=== PATIENT | female | born 1950 | race African-American/Black ===

== ENCOUNTER 2019-05-21 06:05 | Inpatient (IN) | payer MEDICARE, OTHER ==
[2019-05-21 06:51] LABS: #Eosinphils 0.3 thou/uL (0.0-0.7); #Lymphocytes 1.9 thou/uL (1.20-3.40); #Monocytes 0.6 thou/uL (0.11-0.59); %Basophils 0.5 % (0.0-1.0); %Eosinophils 4.9 % (0.0-10.0); %Lymphocytes 28.3 % (21.0-51.0); %Monocytes 8.7 % (0.0-10.0); %Neutrophils 57.6 % (42.0-75.0); Mean Corpuscular HGB CONC 31.8 g/dL (32.0-36.0); Mean Corpuscular Hemoglobin 24.6 pg (27.0-31.0); Mean Corpuscular Volume 77.4 fL (78.0-98.0); Mean Platelet Volume 8.6 fL (7.4-10.4); Platelet Count 266 thou/uL (130-400); RBC Distribution Width 14.7 % (11.5-14.5); Red Blood Cell (RBC) Count 4.08 mill/uL (4.20-5.40); White Blood Cell (WBC) Count 6.9 thou/uL (4.8-10.8)
[2019-05-21] MEDS ORDERED: CEFAZOLIN 1 GM VIAL ONE (06:52)
[2019-05-21] MEDS ORDERED: Levofloxacin 500 mg/D5W 100 ml Premix Bag ONE (07:00)
[2019-05-21] MEDS ORDERED: Clindamycin/D5W 900 mg/50 ml Premix Bag ONE (07:00)
[2019-05-21 07:09] LABS: Anion Gap 9 mmol/L (10-20); BUN (Urea Nitrogen) 16 mg/dL (9.8-20.1); Calc. Creatinine Clearance 68 mL/min (70-130); Calcium 9.1 mg/dL (7.8-10.44); Carbon Dioxide 27 mmol/L (23-31); Chloride 106 mmol/L (98-107); Estimated GFR-MDRD 57; Glucose 98 mg/dL (80-115); Potassium 4.3 mmol/L (3.5-5.1); Sodium 138 mmol/L (136-145)
[2019-05-21] MEDS ORDERED: Fentanyl 100 MCG/2 ML VIAL ONE ×3 (07:24→10:50)
[2019-05-21] MEDS ORDERED: Ketamine 50 MG/ML (10ML VIAL) ONE (07:59)
[2019-05-21] MEDS ORDERED: SUGAMMADEX SODIUM 500 MG/5 ML VIAL ONE (07:59)
[2019-05-21] MEDS ORDERED: Sodium Chloride 0.9% 10 ML ONE (08:05)
[2019-05-21] MEDS ORDERED: diphenhydrAMINE 50 MG/ML VIAL ONE (08:31)
[2019-05-21] MEDS ORDERED: Glycopyrrolate 0.2 MG/ML 5 ML SYRINGE ONE (08:31)
[2019-05-21] MEDS ORDERED: ePHEDrine/0.9% NaCl/PF SYRINGE 50 mg/10 ml ONE (08:31)
[2019-05-21] MEDS ORDERED: Dexamethasone 20 MG/5 ML VIAL ONE (08:31)
[2019-05-21] MEDS ORDERED: Ondansetron PF 4 MG/2 ML Vial ONE (08:31)
[2019-05-21] MEDS ORDERED: Rocuronium Bromide 10 MG/ML (10ML VIAL) ONE (08:31)
[2019-05-21] MEDS ORDERED: PROPOFOL 200 MG/20 ML VIAL ONE (08:31)
[2019-05-21] MEDS ORDERED: PHENYLEPHRINE-NS 100 MCG/ML 10 ML SYRINGE ONE (08:31)
[2019-05-21] MEDS ORDERED: Ondansetron HCl/PF 4 MG/2 ML Vial IVP PRN (10:10)
--- NOTE | 2019-05-21 11:20 | OP ---
DATE OF PROCEDURE: 05/21/2019 PIPE WASHER: Kalyani Colby PA-C PROCEDURES PERFORMED: L3 through L5 decompressive laminectomies. DESCRIPTION OF PROCEDURE: The patient was brought to the operating room and intubated. She was rolled in a prone position on gel-filled chest rolls. An incision was made exposing L3 through L5 and the level was confirmed by x-ray. We performed complete L5, complete L4, and inferior L3 laminectomies, completely decompressing the neural elements. The wound was extensively irrigated. MAC hemostasis was secured and the wound was closed in anatomic layers over drain after the application of vancomycin. Job ID: [id number]
[2019-05-21 13:03] VITALS: BMI 34.1
[2019-05-21] MEDS ORDERED: Ondansetron PF 4 MG/2 ML Vial IM PRN (13:11)
[2019-05-21] MEDS ORDERED: Promethazine HCl 25 MG/ML VIAL IM PRN (13:11)
[2019-05-21] MEDS ORDERED: Mag-Al 1200 mg/1200 mg/30 ML UDCUP PO PRN (13:11)
[2019-05-21] MEDS ORDERED: HYDROcodone/Acetaminophen 10/325 mg Tablet PO PRN ×2 (13:11)
[2019-05-21] MEDS ORDERED: Morphine 4 MG/ML VIAL SLOW IVP PRN (13:11)
[2019-05-21] MEDS ORDERED: Promethazine 25 MG TAB PO PRN (13:11)
[2019-05-21] MEDS ORDERED: diphenhydrAMINE 25 MG CAP PO PRN (13:11)
[2019-05-21] MEDS ORDERED: Milk Of Magnesia 30 ML UDCUP PO PRN (13:11)
[2019-05-21] MEDS ORDERED: diphenhydrAMINE 50 MG/ML VIAL IVP PRN (13:11)
[2019-05-21] MEDS ORDERED: traMADol HCl 50 MG TAB PO PRN (13:11)
[2019-05-21] MEDS ORDERED: tiZANidine HCl 4 MG TAB PO PRN (13:11)
[2019-05-21] MEDS ORDERED: Promethazine HCl 12.5 MG SUPP PR PRN (13:11)
[2019-05-21] MEDS ORDERED: Morphine 2 MG/ML SYRINGE SLOW IVP PRN (13:13)
[2019-05-21] MEDS ORDERED: Acetaminophen 325 MG TAB PO PRN (13:15)
[2019-05-21] MEDS ORDERED: PROVENTIL INHALER 6.7 G (200 INHALATIONS) INH PRN (13:16)
[2019-05-21] MEDS ORDERED: HYDROcodone/Acetaminophen 7.5/325 mg Tablet PO PRN (13:19)
[2019-05-21] MEDS ORDERED: Nitroglycerin 0.4 MG TAB (25 Tab Bottle) SL PRN (13:22)
[2019-05-21] MEDS: Sodium Chloride 0.9% 1,000 ML IV SCH (13:32)
[2019-05-21] MEDS: HumaLOG 300 UNITS/3 ML VIAL SC SCH ×2 (14:21→19:37)
[2019-05-21] MEDS: Gabapentin 300 MG CAP PO SCH ×2 (14:22→21:03)
[2019-05-21] MEDS: Clindamycin/D5W 900 MG in Premix Bag 1 BAG IVPB SCH (17:19)
[2019-05-21] MEDS ORDERED: Sodium Chloride 0.9% 500 ML IVPB SCH (19:00)
[2019-05-21] MEDS: Metoprolol Tartrate 25 MG TAB PO SCH (20:56)
[2019-05-21] MEDS ORDERED: Cyclobenzaprine 10 MG TAB PO SCH (21:00)
[2019-05-21] MEDS ORDERED: Insulin Glargine 40 UNITS in Pre-Filled Syringe 1 EACH SC SCH (21:00)
[2019-05-21] MEDS: Doxycycline 100 MG CAP PO SCH (21:03)
[2019-05-21] MEDS: Atorvastatin Calcium 40 MG TAB PO SCH (21:03)
[2019-05-21] MEDS: Venlafaxine HCl XR 75 MG CAP PO SCH (21:04)
[2019-05-21] MEDS: Clotrimazole 1 % Cream 30 GM TUBE TOP SCH (21:04)
[2019-05-22] MEDS: Clindamycin/D5W 900 MG in Premix Bag 1 BAG IVPB SCH ×3 (01:26→17:50)
[2019-05-22] MEDS: traMADol HCl 50 MG TAB PO PRN ×2 (01:26→08:04)
[2019-05-22] MEDS: Sodium Chloride 0.9% 1,000 ML IV SCH ×2 (01:51→17:50)
[2019-05-22] MEDS: Levothyroxine Sodium 25 MCG TAB PO SCH (05:16)
[2019-05-22] MEDS ORDERED: Sodium Chloride 0.9% 1,000 ML IV SCH ×2 (06:30→14:52)
--- NOTE | 2019-05-22 06:48 | PRG ---
DATE OF SERVICE: 05/22/2019 SUBJECTIVE: The patient is a 69-year-old female, who underwent L3 through L5 laminectomy. She is postoperative day #1. Following the surgery, she was transitioned to the [facility] surgery floor, where her pain has been well controlled with p.o. medications, and she is tolerating a regular diet. She did develop some urinary retention overnight and during a straining episode had a vasovagal event. Her EKG showed normal sinus rhythm. The patient did require straight cath x2 for urinary retention. Her PAULINE had 110 mL out overnight. OBJECTIVE: This morning on exam, the patient is awake, alert, and in no acute distress. She has free active range of motion of all extremities. No focal motor weakness. Her incision is clean, dry, and intact. There is a small amount of bright red blood in the PAULINE. PLAN: We will continue to monitor urine output closely. If she continues to have urinary retention, she will require placement of an indwelling Gil. We will continue to mobilize with the assistance of Physical Therapy. I will monitor the PAULINE output and depending on her progress, I anticipate home in the next few days. Job ID: [id number]
[2019-05-22] MEDS: HumaLOG 300 UNITS/3 ML VIAL SC SCH (07:57)
[2019-05-22] MEDS: Fluticasone Propionate Nasal Spray 16 gm Bottle NASAL SCH (08:02)
[2019-05-22] MEDS: Venlafaxine HCl XR 75 MG CAP PO SCH ×2 (08:03→20:35)
[2019-05-22] MEDS: Ferrous Sulfate 325 MG TAB PO SCH (08:03)
[2019-05-22] MEDS: Ascorbic Acid 500 mg Chewable Tablet PO SCH (08:03)
[2019-05-22] MEDS: Gabapentin 300 MG CAP PO SCH ×3 (08:03→20:35)
[2019-05-22] MEDS ORDERED: Losartan 25 MG TAB PO SCH (09:00)
[2019-05-22] MEDS: Metoprolol Tartrate 25 MG TAB PO SCH (09:43)
[2019-05-22] MEDS: Clotrimazole 1 % Cream 30 GM TUBE TOP SCH ×2 (09:43→20:35)
[2019-05-22] MEDS: Doxycycline 100 MG CAP PO SCH ×2 (11:39→20:34)
[2019-05-22] MEDS ORDERED: Sodium Chloride 0.9% 500 ML IV SCH ×2 (12:15→13:45)
[2019-05-22] MEDS: Acetaminophen 500 MG TAB PO SCH ×3 (12:18→23:18)
[2019-05-22] MEDS ORDERED: Dextrose 50% Abboject 50 ML SYRINGE SLOW IVP PRN (13:35)
[2019-05-22] MEDS ORDERED: Dextrose 5% in Water 1,000 ML IV PRN (13:35)
[2019-05-22] MEDS ORDERED: Insulin Regular 300 UNITS/3 ML VIAL SC PRN (13:36)
[2019-05-22 13:59] LABS: #Eosinphils 0.1 thou/uL (0.0-0.7); #Lymphocytes 1.4 thou/uL (1.20-3.40); #Monocytes 0.5 thou/uL (0.11-0.59); #Neutrophils 4.9 thou/uL (1.40-6.50); %Basophils 0.5 % (0.0-1.0); %Eosinophils 1.6 % (0.0-10.0); %Lymphocytes 19.4 % (21.0-51.0); %Monocytes 7.8 % (0.0-10.0); %Neutrophils 70.7 % (42.0-75.0); Hemoglobin 8.2 g/dL (12.0-16.0); Mean Corpuscular HGB CONC 30.5 g/dL (32.0-36.0); Mean Corpuscular Hemoglobin 24.3 pg (27.0-31.0); Mean Corpuscular Volume 79.7 fL (78.0-98.0); Mean Platelet Volume 8.1 fL (7.4-10.4); Platelet Count 217 thou/uL (130-400); RBC Distribution Width 14.5 % (11.5-14.5); Red Blood Cell (RBC) Count 3.37 mill/uL (4.20-5.40); White Blood Cell (WBC) Count 6.9 thou/uL (4.8-10.8)
[2019-05-22] MEDS ORDERED: FLU VACC TS2019-20(65YR UP)/PF 180 MCG/0.5 ML SYRINGE IM ONE (14:15)
[2019-05-22 14:23] LABS: ALT (SGPT) 7 U/L (8-55); AST (SGOT) 15 U/L (5-34); Albumin 3.4 g/dL (3.4-4.8); Alkaline Phosphatase 63 U/L (40-110); Anion Gap 9 mmol/L (10-20); BUN (Urea Nitrogen) 18 mg/dL (9.8-20.1); Bilirubin, Total 0.2 mg/dL (0.2-1.2); Calc. Creatinine Clearance 69 mL/min (70-130); Calcium 8.1 mg/dL (7.8-10.44); Carbon Dioxide 24 mmol/L (23-31); Chloride 107 mmol/L (98-107); Estimated GFR-MDRD 52; Globulin 2.6 g/dL (2.4-3.5); Glucose 75 mg/dL (80-115); Magnesium 1.9 mg/dL (1.6-2.6); Potassium 4.2 mmol/L (3.5-5.1); Sodium 136 mmol/L (136-145)
[2019-05-22] MEDS ORDERED: Cosyntropin 250 MCG VIAL SLOW IVP SCH (15:00)
[2019-05-22 17:32] LABS: Troponin I Less than 0.010 ng/mL (< 0.028)
[2019-05-22] MEDS: Atorvastatin Calcium 40 MG TAB PO SCH (20:34)
[2019-05-22] MEDS ORDERED: predniSONE 5 MG TAB PO SCH (22:45)
--- NOTE | 2019-05-23 00:10 | PDOC.HOSPP ---
- Subjective Encounter Date: 05/23/19 Encounter Time: 14:30 Subjective: Patient seen and examined for med mngt. Had syncopal episode yesterday. Low BP with hypoglycemia per RN. No focal deficits. No CP/SOB. No overnight events - Objective Vital Signs & Weight: Vital Signs (12 hours) Temp Pulse Resp BP BP Pulse Ox 05/22/19 23:06 98.2 F 67 16 125/81 98 05/22/19 19:10 97.8 F 68 16 115/73 99 05/22/19 16:00 75 121/67 05/22/19 15:19 97.6 F 67 20 102/66 97 05/22/19 15:04 90/60 05/22/19 13:30 70 87/58 L 05/22/19 13:25 80/50 L Weight Weight 218 lb I&O: 05/21/19 05/22/19 05/23/19 06:59 06:59 06:59 Intake Total 1999 3250 Output Total 1515 1180 Balance 485 2070 Result Diagrams: 05/22/19 13:54 05/22/19 13:54 Additional Labs: Accuchecks 05/22/19 05/22/19 05/22/19 20:53 15:52 11:37 POC Glucose 120 H 127 H 77 05/22/19 05/22/19 05/22/19 10:57 08:00 05:23 POC Glucose 57 L* 109 119 H Laboratory Tests 05/22/19 05/22/19 05/22/19 10:57 13:54 13:54 BUN 18 Creatinine 1.24 H POC Glucose 57 L* Troponin I Cortisol 1.00 Cortisol Response 05/22/19 05/22/19 13:54 16:55 BUN Creatinine POC Glucose Troponin I Less than 0.010 Cortisol Cortisol Response EKG Reviewed by me: Yes (SR, Prolonged QT) Hospitalist ROS - Review of Systems Respiratory: denies: cough, dry, shortness of breath, hemoptysis, SOB with excertion, pleuritic pain, sputum, wheezing, other Cardiovascular: denies: chest pain, palpitations, orthopnea, paroxysmal noc. dyspnea, edema, light headedness, other Gastrointestinal: denies: nausea, vomiting, abdominal pain, diarrhea, constipation, melena, hematochezia, other - Medication Medications: Active Medications Generic Name Dose Route Start Last Admin Trade Name Freq PRN Reason Stop Dose Admin Acetaminophen 1,000 mg 05/22/19 12:00 05/22/19 23:18 Tylenol PO 1,000 mg Q6HR BREANNA Administration Ascorbic Acid 1,000 mg 05/22/19 09:00 05/22/19 08:03 Vitamin C PO 1,000 mg DAILY BREANNA Administration Atorvastatin Calcium 80 mg 05/21/19 21:00 05/22/19 20:34 Lipitor PO 80 mg HS BREANNA Administration Clotrimazole 0 gm 05/21/19 21:00 05/22/19 20:35 Lotrimin 1% Cream TOP Not Given BID BREANNA Cosyntropin 250 mcg 05/22/19 15:00 05/22/19 16:20 Cortrosyn SLOW IVP 250 mcg WILLCALL BREANNA Administration Doxycycline Hyclate 100 mg 05/21/19 21:00 05/22/19 20:34 Vibramycin PO 100 mg BID BREANNA Administration Ferrous Sulfate 325 mg 05/22/19 08:00 05/22/19 08:03 Feosol PO 325 mg QAM-WM BREANNA Administration Fluticasone Propionate 0 gm 05/22/19 09:00 05/22/19 08:02 Flonase Nasal [place] NASAL 2 spr DAILY BREANNA Administration Gabapentin 300 mg 05/21/19 15:00 05/22/19 20:35 Neurontin PO 300 mg TID BREANNA Administration Clindamycin Phosphate/Dextrose 50 mls @ 100 mls/hr 05/21/19 18:00 05/22/19 17 :50 900 mg/ Device IVPB 50 mls 0200,1000,1800 BREANNA Administration Sodium Chloride 1,000 mls @ 75 mls/hr 05/22/19 17:04 05/22/19 17:50 Normal Saline 0.9% IV 1,000 mls .[id number] BREANNA Administration Levothyroxine Sodium 25 mcg 05/22/19 06:00 05/22/19 05:16 Synthroid PO 25 mcg 0600 BREANNA Administration Metoprolol Tartrate 25 mg 05/21/19 21:00 05/22/19 09:43 Lopressor PO Not Given BID BREANNA Pantoprazole Sodium 40 mg 05/22/19 09:00 05/22/19 08:03 Protonix PO 40 mg DAILY BREANNA Administration Prednisone 5 mg 05/22/19 22:45 05/22/19 23:18 Prednisone PO 05/23/19 01:00 5 mg NOW BREANNA Administration Venlafaxine HCl 150 mg 05/21/19 21:00 05/22/19 20:35 Effexor Xr PO 150 mg BID BREANNA Administration - Exam General Appearance: NAD Neck: supple, no JVD Heart: RRR, no gallops, no rubs, normal peripheral pulses Respiratory: no wheezes, no rales, no ronchi, normal chest expansion Gastrointestinal: non-tender, non-distended, normal bowel sounds, no palpable masses Extremities: no cyanosis, no clubbing Neurological: normal sensation to touch, no weakness, no focal deficits Psychiatric: normal affect, A&O x 3 Hosp A/P - Plan DVT proph w/SCDs Probable Relative adrenal insuff DM2 with hypglycemia h/o HTN with hypotension Par Afib s/p Watchman CAD Hypothyroidism Prolonged QT GERD HLD CKD 3 Obesity BMI 34.1 PLAN: Cortisol level low s/p Cosyntropin test with suboptimal response Will start Steroids Repeat EKG in AM CXR in AM Orthostatic vitals in AM Cont other meds
[2019-05-23] MEDS: Clindamycin/D5W 900 MG in Premix Bag 1 BAG IVPB SCH ×3 (01:07→17:26)
[2019-05-23] MEDS: Sodium Chloride 0.9% 1,000 ML IV SCH (01:07)
[2019-05-23 05:35] LABS: #Eosinphils 0.3 thou/uL (0.0-0.7); #Lymphocytes 1.3 thou/uL (1.20-3.40); #Monocytes 0.5 thou/uL (0.11-0.59); #Neutrophils 3.9 thou/uL (1.40-6.50); %Basophils 0.7 % (0.0-1.0); %Lymphocytes 20.9 % (21.0-51.0); %Monocytes 8.2 % (0.0-10.0); %Neutrophils 65.2 % (42.0-75.0); Hemoglobin 8.3 g/dL (12.0-16.0); Mean Corpuscular HGB CONC 31.8 g/dL (32.0-36.0); Mean Corpuscular Volume 78.6 fL (78.0-98.0); Platelet Count 237 thou/uL (130-400); RBC Distribution Width 14.6 % (11.5-14.5); Red Blood Cell (RBC) Count 3.32 mill/uL (4.20-5.40)
[2019-05-23] MEDS: Levothyroxine Sodium 25 MCG TAB PO SCH (05:39)
[2019-05-23] MEDS: Acetaminophen 500 MG TAB PO SCH ×3 (05:39→17:26)
[2019-05-23 05:55] LABS: Anion Gap 11 mmol/L (10-20); BUN (Urea Nitrogen) 15 mg/dL (9.8-20.1); Calc. Creatinine Clearance 78 mL/min (70-130); Calcium 8.1 mg/dL (7.8-10.44); Carbon Dioxide 24 mmol/L (23-31); Chloride 106 mmol/L (98-107); Estimated GFR-MDRD 61; Glucose 81 mg/dL (80-115); Potassium 4.7 mmol/L (3.5-5.1); Sodium 136 mmol/L (136-145)
--- NOTE | 2019-05-23 07:20 | PRG ---
DATE OF SERVICE: 05/23/2019 SUBJECTIVE: The patient is now postoperative day #2, status post L3 through L5 laminectomy. She has had some issues with hypoglycemia and hypotension. I discontinued to any of her narcotic medications, but this did not seem to improve her symptoms. So, I also treated with fluids and several boluses. I consulted the hospitalist to check the cortisol level, who feel that she may have underlying adrenal insufficiency. She has since been treated with steroids and has had some improvement. OBJECTIVE: VITAL SIGNS: Her most recent blood pressure is 128/74, heart rate is 79, respiratory rate is 16, she is 99% on room air, and temperature is 99.3. GENERAL: On exam, the patient is awake and alert, in no acute distress. She is free active range of motion of all extremities. No focal motor weakness. PAULINE drain is in place with small amount of bright red blood in the PAULINE bulb. ASSESSMENT AND PLAN: We will continue to monitor the patient closely. Her blood pressure is improving with the steroids and fluids. We will also monitor the PAULINE output and leave in place today. The patient also has a Gil catheter and we will attempt to get this out possibly tomorrow. Depending on her progress, I anticipate home in the next few days. Job ID: [id number]
[2019-05-23] MEDS: Gabapentin 300 MG CAP PO SCH ×3 (08:54→20:11)
[2019-05-23] MEDS: predniSONE 20 MG TAB PO SCH (08:54)
[2019-05-23] MEDS: Ascorbic Acid 500 mg Chewable Tablet PO SCH (08:54)
[2019-05-23] MEDS: Ferrous Sulfate 325 MG TAB PO SCH (08:54)
[2019-05-23] MEDS: Venlafaxine HCl XR 75 MG CAP PO SCH ×2 (08:54→20:10)
[2019-05-23] MEDS: Fluticasone Propionate Nasal Spray 16 gm Bottle NASAL SCH (08:55)
[2019-05-23] MEDS: Clotrimazole 1 % Cream 30 GM TUBE TOP SCH ×3 (08:55→20:11)
[2019-05-23] MEDS: Doxycycline 100 MG CAP PO SCH ×2 (09:06→20:14)
--- NOTE | 2019-05-23 09:15 | PRG ---
DATE OF SERVICE: 05/23/2019 Ms. Snowden is feeling much better this morning. She had an uncomplicated laminectomy, but then yesterday was having some issues with presyncope, modest hypotension, and generally feeling poorly. She was found to have fairly low cortisol and has been started on steroids and is feeling much better. We will continue to mobilize and anticipate dismissal in the next 1 to 2 days. She may require dismissal on oral steroids. Appreciate excellent medical care. Job ID: [id number]
--- NOTE | 2019-05-23 09:41 | RAD ---
AP CHEST: Date: 05/23/2019 HISTORY: Shortness of breath. COMPARISON: 11/29/2012. FINDINGS: There is linear opacity in the right mid lung extending from the hilum suggesting linear atelectasis. Lung cole are otherwise clear. No focal infiltrate or vascular congestion. Surgical clips overlie t he left neck and upper chest. Heart and mediastinum unremarkable. IMPRESSION: Linear atelectasis overlying the right hilum. Otherwise no evidence of acute process. POS: ADDYH
[2019-05-23] MEDS: Insulin Regular 300 UNITS/3 ML VIAL SC PRN (11:42)
--- NOTE | 2019-05-23 19:18 | PDOC.EVN ---
Event Note - Event Note Event Note: Notified by RN, patient with persistent urinary retention. Post void bladder scan showed residual in 600s. Gil removed earlier today. PRN order already in place for PRN straight cath. UA/UCx ordered.
[2019-05-23] MEDS: Insulin Glargine 10 UNITS in Pre-Filled Syringe 1 EACH SC SCH (20:10)
[2019-05-23] MEDS: Atorvastatin Calcium 40 MG TAB PO SCH (20:11)
[2019-05-23 20:14] LABS: Bacteria/HPF None Seen HPF (None Seen); Bilirubin Negative (Negative); Blood, Urine Negative (Negative); Clarity Clear (Clear); Glucose, Urine (Dipstick) 70 mg/dL (Negative); Leukocyte Negative Leu/uL (Negative); Nitrite Negative (Negative); Protein, Urine (Dipstick) Negative (Neg-Trace); RBC/HPF None Seen HPF (0-3); Squamous Epithelial None Seen HPF (0-3); Urobilinogen Normal mg/dL (Less than 2); WBC/HPF 0-3 HPF (0-3)
[2019-05-23 20:19] LABS: Urine Culture Reflex No No
[2019-05-23] MEDS ORDERED: traMADol HCl 50 MG TAB PO PRN (21:29)
--- NOTE | 2019-05-23 21:55 | PDOC.HOSPP ---
- Subjective Encounter Date: 05/23/19 Encounter Time: 10:00 Subjective: Patient seen and examined for med mngt. BP improving. Feeling slightly better. Pain controlled. BP improving. No new complaints. No overnight events - Objective Vital Signs & Weight: Vital Signs (12 hours) Temp Pulse Resp BP BP BP Pulse Ox 05/23/19 19:34 98.3 F 75 16 145/78 H 95 05/23/19 14:51 98.3 F 73 20 124/49 L 98 05/23/19 13:20 117/73 148/76 H 05/23/19 10:16 97.7 F 71 20 147/82 H 97 Pulse Ox 05/23/19 19:34 05/23/19 14:51 05/23/19 13:20 99 05/23/19 10:16 Weight Weight 218 lb I&O: 05/22/19 05/23/19 05/24/19 06:59 06:59 06:59 Intake Total 1999 3250 711 Output Total 0431 2140 3719 Balance 229 -473 -7002 Result Diagrams: 05/23/19 05:02 05/23/19 05:02 Additional Labs: Accuchecks 05/23/19 05/23/19 05/23/19 19:58 15:02 10:19 POC Glucose 229 H 149 H 162 H 05/23/19 05:26 POC Glucose 91 Radiology Reviewed by me: Yes (CXR - negative) EKG Reviewed by me: Yes (EKG - SR, QT - 440ms) Hospitalist ROS - Review of Systems Respiratory: denies: cough, dry, shortness of breath, hemoptysis, SOB with excertion, pleuritic pain, sputum, wheezing, other Cardiovascular: denies: chest pain, palpitations, orthopnea, paroxysmal noc. dyspnea, edema, light headedness, other Gastrointestinal: denies: nausea, vomiting, abdominal pain, diarrhea, constipation, melena, hematochezia, other - Medication Medications: Active Medications Generic Name Dose Route Start Last Admin Trade Name Freq PRN Reason Stop Dose Admin Acetaminophen 1,000 mg 05/22/19 12:00 05/23/19 17:26 Tylenol PO 1,000 mg Q6HR BREANNA Administration Ascorbic Acid 1,000 mg 05/22/19 09:00 05/23/19 08:54 Vitamin C PO 1,000 mg DAILY BREANNA Administration Atorvastatin Calcium 80 mg 05/21/19 21:00 05/23/19 20:11 Lipitor PO 80 mg HS [facility] Administration Clotrimazole 0 gm 05/21/19 21:00 05/23/19 20:11 Lotrimin 1% Cream TOP Not Given BID [facility] Doxycycline Hyclate 100 mg 05/21/19 21:00 05/23/19 20:14 Vibramycin PO 100 mg BID BREANNA Administration Ferrous Sulfate 325 mg 05/22/19 08:00 05/23/19 08:54 Feosol PO 325 mg QAM-WM [facility] Administration Fluticasone Propionate 0 gm 05/22/19 09:00 05/23/19 08:55 Flonase Nasal [place] NASAL 2 spr DAILY [facility] Administration Gabapentin 300 mg 05/21/19 15:00 05/23/19 20:11 Neurontin PO 300 mg TID BREANNA Administration Clindamycin Phosphate/Dextrose 50 mls @ 100 mls/hr 05/21/19 18:00 05/23/19 17 :26 900 mg/ Device IVPB 50 mls 0200,1000,1800 BREANNA Administration Insulin Glargine 10 units/ 0.1 mls @ 0 mls/hr 05/23/19 21:00 05/23/19 20:10 Miscellaneous Medication SC 0.1 mls HS [facility] Administration Insulin Human Regular 0 units 05/22/19 13:36 05/23/19 11:42 Humulin R SC 2 unit .MILD SLIDING SCALE PRN Administration Mild Correctional Scale Levothyroxine Sodium 25 mcg 05/22/19 06:00 05/23/19 05:39 Synthroid PO 25 mcg 0600 [facility] Administration Metoprolol Tartrate 25 mg 05/21/19 21:00 05/22/19 09:43 Lopressor PO Not Given BID [facility] Pantoprazole Sodium 40 mg 05/22/19 09:00 05/23/19 08:54 Protonix PO 40 mg DAILY BREANNA Administration Prednisone 10 mg 05/23/19 08:00 05/23/19 08:54 Prednisone PO 10 mg QAM-WM [facility] Administration Venlafaxine HCl 150 mg 05/21/19 21:00 05/23/19 20:10 Effexor Xr PO 150 mg BID [facility] Administration - Exam General Appearance: NAD Neck: supple, no JVD Heart: RRR, no gallops Respiratory: no wheezes, no rales, no ronchi Gastrointestinal: non-tender, non-distended, normal bowel sounds Hosp A/P - Plan DVT proph w/SCDs Relative adrenal insuff DM2 with hypglycemia h/o HTN with hypotension Par Afib s/p Watchman CAD Hypothyroidism Prolonged QT GERD HLD CKD 3 Obesity BMI 34.1 PLAN: Cont Prednisone Start Insulin at 10 units HS Orthostatic vitals negative Cont other meds
[2019-05-23] MEDS: traMADol HCl 50 MG TAB PO PRN (21:58)
[2019-05-24] MEDS: Acetaminophen 500 MG TAB PO SCH ×4 (01:03→17:14)
[2019-05-24] MEDS: Clindamycin/D5W 900 MG in Premix Bag 1 BAG IVPB SCH ×3 (01:03→17:13)
[2019-05-24] MEDS: traMADol HCl 50 MG TAB PO PRN (04:41)
[2019-05-24] MEDS: Levothyroxine Sodium 25 MCG TAB PO SCH (04:41)
[2019-05-24] MEDS: Calcium Carbonate + Vit D 1 TAB PO SCH ×2 (08:39→17:13)
[2019-05-24] MEDS: Ascorbic Acid 500 mg Chewable Tablet PO SCH (08:39)
[2019-05-24] MEDS: Doxycycline 100 MG CAP PO SCH ×2 (08:39→20:46)
[2019-05-24] MEDS: Venlafaxine HCl XR 75 MG CAP PO SCH ×2 (08:39→20:45)
[2019-05-24] MEDS: predniSONE 20 MG TAB PO SCH (08:40)
[2019-05-24] MEDS: Gabapentin 300 MG CAP PO SCH ×3 (08:40→20:46)
[2019-05-24] MEDS: Metoprolol Tartrate 25 MG TAB PO SCH ×2 (08:40→20:46)
[2019-05-24] MEDS: Ferrous Sulfate 325 MG TAB PO SCH (08:40)
[2019-05-24] MEDS: Fluticasone Propionate Nasal Spray 16 gm Bottle NASAL SCH (08:40)
[2019-05-24] MEDS: HYDROcodone/Acetaminophen 5/325 mg Tablet PO PRN ×2 (08:41→14:27)
[2019-05-24] MEDS: Clotrimazole 1 % Cream 30 GM TUBE TOP SCH ×2 (08:41→20:46)
[2019-05-24] MEDS ORDERED: Metoprolol Tartrate 25 MG TAB PO SCH (09:00)
--- NOTE | 2019-05-24 09:07 | PRG ---
DATE OF SERVICE: 05/24/2019 SUBJECTIVE: The patient is postoperative day #3, status post L3-L5 laminectomy. She initially developed some hypertension and urinary retention. She was suspected to have mild adrenal insufficiency and this is improved with steroid use. I attempted to remove her Gil catheter yesterday and she was initially able to void. However, her urinary retention returned and Gil catheter required replacement. She also has had some pain control issues and her tramadol has been restarted overnight. OBJECTIVE: On exam this morning, she is awake, alert, in no acute distress. She has free active range of motion of all extremities. No focal motor weakness or reflex asymmetry. PAULINE drain is in place and had 95 mL of output overnight. PLAN: We will plan to consult Urology for persistent urinary retention postoperatively. I will leave her PAULINE drain and continue her IV antibiotics at this point. She is otherwise mobilizing well and depending on her progress I believe she could be discharged home tomorrow. Job ID: [id number]
[2019-05-24] MEDS: Insulin Regular 300 UNITS/3 ML VIAL SC PRN ×2 (11:48→17:13)
--- NOTE | 2019-05-24 19:58 | PDOC.HOSPP ---
- Subjective Encounter Date: 05/24/19 Encounter Time: 09:45 Subjective: Patient seen and examined for med mngt. BP better. No CP/SOB. No new complaints. Overnight events noted. - Objective Vital Signs & Weight: Vital Signs (12 hours) Temp Pulse Resp BP BP Pulse Ox 05/24/19 19:29 97.8 F 69 16 137/82 98 05/24/19 15:19 98.3 F 68 16 134/74 97 05/24/19 11:56 98.5 F 76 20 145/85 H 98 05/24/19 08:38 98 Weight Weight 218 lb I&O: 05/23/19 05/24/19 05/25/19 06:59 06:59 06:59 Intake Total 3252 711 240 Output Total 5502 2827 1275 [facility] -145 -6179 -1035 Result Diagrams: 05/23/19 05:02 05/23/19 05:02 Additional Labs: Accuchecks 05/24/19 05/24/19 05/24/19 15:34 10:53 05:09 POC Glucose 191 H 180 H 130 H 05/23/19 19:58 POC Glucose 229 H Hospitalist ROS - Review of Systems Cardiovascular: denies: chest pain, palpitations, orthopnea, paroxysmal noc. dyspnea, edema, light headedness, other Gastrointestinal: denies: nausea, vomiting, abdominal pain, diarrhea, constipation, melena, hematochezia, other - Medication Medications: Active Medications Generic Name Dose Route Start Last Admin Trade Name Freq PRN Reason Stop Dose Admin Acetaminophen 1,000 mg 05/22/19 12:00 05/24/19 17:14 Tylenol PO Not Given Q6HR BREANNA Hydrocodone Bitart/Acetaminophen 1 tab 05/24/19 08:09 05/24/19 14:27 [place] 5/325 PO 1 tab Q4H PRN Administration Pain Ascorbic Acid 1,000 mg 05/22/19 09:00 05/24/19 08:39 Vitamin C PO 1,000 mg DAILY BREANNA Administration Atorvastatin Calcium 80 mg 05/21/19 21:00 05/23/19 20:11 Lipitor PO 80 mg HS BREANNA Administration Calcium/Vitamin D 1 tab 05/24/19 08:00 05/24/19 17:13 Caltrate 600 + Vit D PO 1 tab BID-WM BREANNA Administration Clotrimazole 0 gm 05/21/19 21:00 05/24/19 08:41 Lotrimin 1% Cream TOP Not Given BID [facility] Doxycycline Hyclate 100 mg 05/21/19 21:00 05/24/19 08:39 Vibramycin PO 100 mg BID BREANNA Administration Ferrous Sulfate 325 mg 05/22/19 08:00 05/24/19 08:40 Feosol PO 325 mg QAM-WM BREANNA Administration Fluticasone Propionate 0 gm 05/22/19 09:00 05/24/19 08:40 Flonase Nasal [place] NASAL 2 spr DAILY [facility] Administration Gabapentin 300 mg 05/21/19 15:00 05/24/19 14:23 Neurontin PO 300 mg TID BREANNA Administration Clindamycin Phosphate/Dextrose 50 mls @ 100 mls/hr 05/21/19 18:00 05/24/19 17 :13 900 mg/ Device IVPB 50 mls 0200,1000,1800 BREANNA Administration Insulin Glargine 10 units/ 0.1 mls @ 0 mls/hr 05/23/19 21:00 05/23/19 20:10 Miscellaneous Medication SC 0.1 mls HS [facility] Administration Insulin Human Regular 0 units 05/22/19 13:36 05/24/19 17:13 Humulin R SC 2 unit .MILD SLIDING SCALE PRN Administration Mild Correctional Scale Levothyroxine Sodium 25 mcg 05/22/19 06:00 05/24/19 04:41 Synthroid PO 25 mcg 0600 [facility] Administration Metoprolol Tartrate 25 mg 05/24/19 09:00 05/24/19 08:40 Lopressor PO 25 mg BID [facility] Administration Pantoprazole Sodium 40 mg 05/22/19 09:00 05/24/19 08:39 Protonix PO 40 mg DAILY [facility] Administration Tramadol HCl 100 mg 05/23/19 21:29 05/24/19 04:41 Ultram PO 100 mg Q6H PRN Administration PAIN SCALE 6-10 Venlafaxine HCl 150 mg 05/21/19 21:00 05/24/19 08:39 Effexor Xr PO 150 mg BID [facility] Administration - Exam General Appearance: NAD Heart: RRR, no gallops Respiratory: no wheezes, no ronchi Gastrointestinal: non-tender, non-distended, normal bowel sounds Hosp A/P - Plan DVT proph w/SCDs Relative adrenal insuff DM2 with hypglycemia h/o HTN with hypotension Par Afib s/p Watchman CAD Hypothyroidism Prolonged QT GERD HLD CKD 3 Obesity BMI 34.1 Urinary retention PLAN: Reduce Prednisone 5 mg daily Cont Insulin at 10 units HS Cont sliding scale Endocrinology f/u as outpt Cont Gil Cont other meds
[2019-05-24] MEDS: Atorvastatin Calcium 40 MG TAB PO SCH (20:45)
[2019-05-24] MEDS: Insulin Glargine 10 UNITS in Pre-Filled Syringe 1 EACH SC SCH (20:46)
--- NOTE | 2019-05-25 00:11 | CON ---
DATE OF CONSULTATION: 05/24/2019 REASON FOR CONSULTATION: Urinary retention. CHIEF COMPLAINT: Unable to void. HISTORY OF PRESENT ILLNESS: Ms. Snowden is a 69-year-old female, who underwent lumbar laminectomy on 05/21/2019. Postoperatively, she was unable to void. She was managed with intermittent catheterization for over 24 hours and then last night on 05/23/2019, a Gil catheter was left indwelling. Her only prior urologic history is urinary retention after tubal ligation many years ago. Otherwise, she denies any chronic urinary problems. She denies any prior bladder surgeries. She denies any issues with chronic constipation. She has never had hematuria. PAST MEDICAL HISTORY: Hypertension, [id number] diabetes. MEDICATION: Please see chart. REVIEW OF SYSTEMS: RESPIRATORY: Denies any shortness of breath. CARDIOVASCULAR: Denies chest pain or palpitation. GASTROINTESTINAL: Denies chronic constipation or diarrhea. GENITOURINARY: Please see history of present illness. NEUROMUSCULAR: She has had back pain and for that reason, presented for surgical therapy. FAMILY HISTORY: Noncontributory. PHYSICAL EXAMINATION: GENERAL: She is awake, alert. She is in no distress at this time. HEENT: Normocephalic, atraumatic. NECK: Supple. No masses. CHEST: Clear to auscultation. CARDIOVASCULAR: Regular rhythm. ABDOMEN: Soft, nontender. No palpable masses. Liver and spleen not palpable. No abdominal tenderness noted. : Full pelvic exam was not performed. A Gil catheter in place and draining clear yellow urine. IMPRESSION: Postoperative urinary retention. The patient has not had urinary difficulties in the past. She has only had a catheter one prior time that she can recall and has after tubal ligation. It is anticipated her urinary function will return to completely normal after adequate bladder rest. I have discussed with her catheter removal and this will be done next week. Arrangements will be made for her to have a catheter placed in case she cannot void. RECOMMENDATION: 1. Discharge home with Gil catheter in place. Catheter removal in no sooner than three days on 05/28/2019. 2. She will make arrangements for catheter replacement prior to removing her catheter. She does live for catheter replacement if necessary. Job ID: [id number]
[2019-05-25] MEDS: Clindamycin/D5W 900 MG in Premix Bag 1 BAG IVPB SCH (01:05)
[2019-05-25] MEDS: HYDROcodone/Acetaminophen 5/325 mg Tablet PO PRN ×3 (01:10→12:14)
[2019-05-25] MEDS: Acetaminophen 500 MG TAB PO SCH ×3 (01:19→12:15)
[2019-05-25] MEDS: Insulin Regular 300 UNITS/3 ML VIAL SC PRN ×2 (05:38→12:20)
[2019-05-25] MEDS: Levothyroxine Sodium 25 MCG TAB PO SCH (05:43)
[2019-05-25] MEDS ORDERED: predniSONE 5 MG TAB PO SCH (08:00)
[2019-05-25] MEDS: Ascorbic Acid 500 mg Chewable Tablet PO SCH (08:36)
[2019-05-25] MEDS: Gabapentin 300 MG CAP PO SCH ×2 (08:36→16:31)
[2019-05-25] MEDS: Ferrous Sulfate 325 MG TAB PO SCH (08:36)
[2019-05-25] MEDS: Calcium Carbonate + Vit D 1 TAB PO SCH (08:36)
[2019-05-25] MEDS: Metoprolol Tartrate 25 MG TAB PO SCH (08:37)
[2019-05-25] MEDS: Venlafaxine HCl XR 75 MG CAP PO SCH (08:37)
[2019-05-25] MEDS: Clotrimazole 1 % Cream 30 GM TUBE TOP SCH (08:38)
[2019-05-25] MEDS: Fluticasone Propionate Nasal Spray 16 gm Bottle NASAL SCH (08:38)
[2019-05-25 11:35] VITALS: BP 112/69; TEMP 98.4
[2019-05-25] MEDS: Doxycycline 100 MG CAP PO SCH (12:13)
--- NOTE | 2019-05-25 17:25 | PDOC.HOSPP ---
- Subjective Encounter Date: 05/25/19 Encounter Time: 08:00 Subjective: Patient seen and examined for med mngt. No CP or SOB. Feeling better. No new complaints. No overnight events - Objective Vital Signs & Weight: Vital Signs (12 hours) Temp Pulse Resp BP Pulse Ox 05/25/19 11:35 98.4 F 64 16 112/69 98 05/25/19 08:30 97 05/25/19 07:12 98.1 F 62 16 148/85 H 97 Weight Weight 218 lb I&O: 05/24/19 05/25/19 05/26/19 06:59 06:59 06:59 Intake Total 711 240 500 Output Total 6863 3340 630 Balance -6179 -3100 -130 Result Diagrams: 05/23/19 05:02 05/23/19 05:02 Additional Labs: Accuchecks 05/25/19 05/25/19 05/24/19 11:00 05:10 20:49 POC Glucose 209 H 188 H 227 H Hospitalist ROS - Review of Systems Cardiovascular: denies: chest pain, palpitations, orthopnea, paroxysmal noc. dyspnea, edema, light headedness, other Gastrointestinal: denies: nausea, vomiting, abdominal pain, diarrhea, constipation, melena, hematochezia, other - Exam General Appearance: NAD Heart: RRR, no gallops Respiratory: no wheezes, no rales, no ronchi Gastrointestinal: non-tender, non-distended, normal bowel sounds Hosp A/P - Plan Relative adrenal insuff - started on Prednisone DM2 with hypoglycemia h/o HTN with hypotension Par Afib s/p Watchman CAD Hypothyroidism Prolonged QT GERD HLD CKD 3 Obesity BMI 34.1 Urinary retention PLAN: Cont Prednisone 5 mg daily - Endocrinology f/u as outpt Cont Insulin 10 units HS - Gradually increase as outpt Cont sliding scale Cont Gil - DC after 3 days per Urology Cont other meds
--- NOTE | 2019-05-26 03:49 | DIS ---
DATE OF ADMISSION: 05/23/2019 DATE OF DISCHARGE: 05/25/2019 HOSPITAL COURSE: The patient is a 69-year-old female, recently evaluated in our office for progressive back pain and neurogenic claudication. She was found to have significant lumbar stenosis from L3-L5 and underwent L3-L5 laminectomy on 05/21/2019. Following the surgery, she was transitioned to the Med/Surg floor. Following admission, she developed issues with hypotension, hypoglycemia, and urinary retention. She was evaluated by the hospitalist service and suspected to have mild adrenal insufficiency. She was started on p.o. steroids and has improved significantly during her admission course. For her urinary retention, she did fail a void trial and required replacement of her Gil catheter. She was evaluated by Urology, which felt that Gil should be left in place with possible removal next week. The patient's pain has been well controlled with p.o. medications. She has been tolerating a regular diet and she has been mobilizing with the assistance of PT and OT. We will plan to dismiss home later today and her PAULINE has been removed this morning. The patient has been advised that she should follow up with Urology, as well as Endocrinology [place] We will follow up with the patient in 2 weeks' and have provided her scripts with [place] and Zanaflex for pain. The hospitalist will send her home on prednisone and has reconciled her previous home medications. She should hold any aspirin or other anticoagulants for 2 weeks postoperatively. I have discussed this plan and further instructions with the patient. Job ID: [id number]
== END 2019-05-25 15:10 | disposition home health service (06) | DRG 516 ==
LOC: SDC 06:05 → SURG A 13:03 → OBSVTOIN 05-23 08:30
PROVIDERS: ADMIT Neurological Surgery; ATTEND Neurological Surgery
PROC: 01NB0ZZ Release Lumbar Nerve, Open Approach (ICD-10-PCS; principal; 2019-05-23)
DX: M48.062 Spinal stenosis, lumbar region with neurogenic claudication (principal); E27.40 Unspecified adrenocortical insufficiency; I48.0 Paroxysmal atrial fibrillation; I25.10 Atherosclerotic heart disease of native coronary artery without angina pectoris; E03.9 Hypothyroidism, unspecified; I45.81 Long QT syndrome; K21.9 Gastro-esophageal reflux disease without esophagitis; E78.5 Hyperlipidemia, unspecified; N18.3 Chronic kidney disease, stage 3 (moderate); E66.9 Obesity, unspecified; I12.9 Hypertensive chronic kidney disease with stage 1 through stage 4 chronic kidney disease, or unspecified chronic kidney disease; E11.22 Type 2 diabetes mellitus with diabetic chronic kidney disease; E11.649 Type 2 diabetes mellitus with hypoglycemia without coma; R33.9 Retention of urine, unspecified; Z68.34 Body mass index [BMI] 34.0-34.9, adult; Z79.899 Other long term (current) drug therapy; Z79.890 Hormone replacement therapy; Z79.4 Long term (current) use of insulin; Z79.82 Long term (current) use of aspirin
CPT/HCPCS: 36415; 36416; 71045; 76000; 80048; 80053; 80400; 81001; 82533; 83735; 83880; 84443; 84484; 85025; 90471; 90662; 93005; 93010; G0008; J0690; J0834; J1100; J1200; J1815; J1956; J2270; J2405; J2704; J3010; J3370; J3490; J7050; J7512

== ENCOUNTER 2022-10-31 14:45 | Inpatient (IN) | payer OTHER ==
[2022-10-31 15:16] LABS: #Eosinphils 0.2 thou/uL (0.0-0.7); #Monocytes 0.5 thou/uL (0.11-0.59); #Neutrophils 6.4 thou/uL (1.40-6.50); %Basophils 0.4 % (0.0-1.0); %Eosinophils 1.8 % (0.0-10.0); %Lymphocytes 25.4 % (21.0-51.0); %Monocytes 5.1 % (0.0-10.0); %Neutrophils 67.1 % (42.0-75.0); Hemoglobin 11.3 g/dL (12.0-16.0); Mean Corpuscular HGB CONC 31.9 g/dL (32.0-36.0); Mean Corpuscular Hemoglobin 27.1 pg (27.0-31.0); Mean Corpuscular Volume 84.9 fl (78.0-98.0); Platelet Count 299 10x3/uL (130-400); RBC Distribution Width 13.9 % (11.5-14.5); Red Blood Cell (RBC) Count 4.17 mill/uL (4.20-5.40); White Blood Cell (WBC) Count 9.5 10x3/uL (4.8-10.8)
[2022-10-31 15:34] LABS: ALT (SGPT) 12 U/L (8-55); AST (SGOT) 17 U/L (5-34); Albumin 3.5 g/dL (3.4-4.8); Alkaline Phosphatase 47 U/L (40-110); Anion Gap 16 mmol/L (10-20); BUN (Urea Nitrogen) 38 mg/dL (9.8-20.1); Bilirubin, Total 0.3 mg/dL (0.2-1.2); Calc. Creatinine Clearance 0 mL/min (70-130); Calcium 9.1 mg/dL (7.8-10.44); Carbon Dioxide 20 mmol/L (23-31); Chloride 106 mmol/L (98-107); Estimated GFR 70; Glucose 140 mg/dL (80-115); Potassium 4.1 mmol/L (3.5-5.1); Protein, Total 6.5 g/dL (5.8-8.1); Sodium 138 mmol/L (136-145)
[2022-10-31] MEDS ORDERED: Aspirin Chewable 81 MG TAB ONE (17:14)
[2022-10-31] MEDS ORDERED: Acetaminophen 500 MG TAB ONE (17:22)
[2022-10-31] MEDS ORDERED: Ondansetron PF 4 MG/2 ML Vial IVP PRN (19:11)
[2022-10-31] MEDS ORDERED: HumaLOG 300 UNITS/3 ML VIAL SC PRN (19:12)
[2022-10-31] MEDS ORDERED: Dextrose 50% Abboject 50 ML SYRINGE SLOW IVP PRN (19:12)
[2022-10-31] MEDS ORDERED: Glucagon 1 MG/ML KIT IM PRN (19:12)
[2022-10-31] MEDS ORDERED: Dextrose 5% in Water 1,000 ML IV PRN (19:12)
[2022-10-31] MEDS ORDERED: Labetalol HCl 100 MG/20 ML VIAL SLOW IVP PRN (19:14)
[2022-10-31] MEDS ORDERED: hydrALAZINE 20 MG/ML VIAL SLOW IVP PRN (19:14)
[2022-10-31 20:34] VITALS: BMI 26.6
[2022-10-31] MEDS ORDERED: Atorvastatin Calcium 40 MG TAB PO SCH (21:00)
[2022-10-31] MEDS ORDERED: Sodium Chloride 0.9% 500 ML IV SCH (23:45)
[2022-11-01 01:14] LABS: Bacteria/HPF None Seen HPF (None Seen); Bilirubin Negative (Negative); Blood, Urine Negative (Negative); CAUTI Indications for Culture Alt mental st,lethar; Clarity Clear (Clear); Glucose, Urine (Dipstick) Normal (Negative); Ketone, Urine Negative (Negative); Leukocyte Negative Leu/uL (Negative); Nitrite Negative (Negative); Protein, Urine (Dipstick) Negative (Neg-Trace); RBC/HPF 0-3 HPF (0-3); Squamous Epithelial 0-3 HPF (0-3); Urobilinogen Normal mg/dL (Less than 2); WBC/HPF 0-3 HPF (0-3)
[2022-11-01 01:15] LABS: Urine Culture Reflex No No
[2022-11-01] MEDS ORDERED: Sodium Chloride 0.9% 1,000 ML IV SCH ×2 (02:15→04:30)
[2022-11-01] MEDS: Sodium Chloride 0.9% 1,000 ML IV SCH ×3 (02:15→23:02)
[2022-11-01 02:44] LABS: Hemoglobin 11.2 g/dL (12.0-16.0); Mean Corpuscular Volume 84.3 fl (78.0-98.0); Mean Platelet Volume 10.5 fL (7.4-10.4); Platelet Count 218 10x3/uL (130-400); RBC Distribution Width 14.1 % (11.5-14.5); Red Blood Cell (RBC) Count 4.15 mill/uL (4.20-5.40); White Blood Cell (WBC) Count 11.1 10x3/uL (4.8-10.8)
[2022-11-01 02:46] LABS: Delete Auto Diff?? YES; Manual Diff?? YES
[2022-11-01 03:00] LABS: Lactic Acid 3.3 mmol/L (0.5-2.2)
[2022-11-01 03:02] LABS: Hemoglobin A1c 7.2 % (4.0-6.0)
[2022-11-01 03:06] LABS: Band 39 % (5-11); CellaVision Operator ID lab.abc; Lymphocytes 4 % (21-51); Monocytes 6 % (0-10); Neutrophil 52 % (42-75); Platelet Adequacy Comment Platelets Normal; RBC Morphology Within Normal Limits; Total Cell Count 101
[2022-11-01] MEDS ORDERED: Piperacillin/Tazobactam 3.375 GM in Sodium Chloride 0.9% 100 ML IVPB SCH ×2 (03:30→04:00)
[2022-11-01] MEDS ORDERED: Sodium Chloride 0.9% 500 ML IV SCH ×2 (04:00→06:30)
[2022-11-01 04:14] LABS: Anion Gap 17 mmol/L (10-20); BUN (Urea Nitrogen) 45 mg/dL (9.8-20.1); Calc. Creatinine Clearance 61 mL/min (70-130); Calcium 9.2 mg/dL (7.8-10.44); Carbon Dioxide 22 mmol/L (23-31); Cardiac Risk 3.5 (Less than 4.5); Chloride 105 mmol/L (98-107); Cholesterol 178 mg/dl (< 200 Desired); Estimated GFR 58; Glucose 177 mg/dL (80-115); HDL Cholesterol 51 mg/dL (>60 Neg Risk); LDL Cholesterol, Calculated 117 mg/dL; Potassium 4.3 mmol/L (3.5-5.1); Sodium 140 mmol/L (136-145); Triglycerides 49 mg/dL (Less than 150)
[2022-11-01 06:11] LABS: Lactic Acid 4.1 mmol/L (0.5-2.2)
[2022-11-01 06:45] LABS: Free T4 (Free Thyroxine) 1.02 ng/dL (0.70-1.48)
[2022-11-01] MEDS ORDERED: Vancomycin 1.5 GRAM/300 ML BAG 1.5 GM in Premix Bag 1 BAG IVPB SCH (07:00)
[2022-11-01] MEDS: Piperacillin/Tazobactam 3.375 GM in Sodium Chloride 0.9% 100 ML IVPB SCH ×3 (08:46→23:01)
[2022-11-01] MEDS: Aspirin 300 MG Suppository PR SCH (08:48)
[2022-11-01] MEDS ORDERED: Aspirin 81 mg Enteric Coated Tablet PO SCH (09:00)
[2022-11-01] MEDS ORDERED: Non-Formulary Item 1 EACH (Carvedilol [Coreg] 12.5 MG Tab) PO SCH (09:00)
[2022-11-01 09:29] LABS: Lactic Acid 4.1 mmol/L (0.5-2.2)
[2022-11-01] MEDS: Apixaban 5 MG TAB PO SCH ×2 (10:39→20:11)
[2022-11-01] MEDS: Venlafaxine HCl XR 75 MG CAP PO SCH (10:39)
[2022-11-01] MEDS ORDERED: Bisacodyl 10 MG SUPP PR PRN (13:13)
[2022-11-01] MEDS: Ipratropium/Albuterol 3 ML NEB EZPAP PRN (16:52)
[2022-11-01] MEDS ORDERED: Morphine 2 MG/ML VIAL SLOW IVP PRN (17:21)
[2022-11-01] MEDS: Senokot S 8.6-50 MG TAB PO SCH (20:11)
[2022-11-01] MEDS: Atorvastatin Calcium 20 MG TAB PO SCH (20:11)
[2022-11-01] MEDS ORDERED: diphenhydrAMINE 50 MG/ML VIAL IVP SCH (23:45)
[2022-11-02] MEDS: Acetaminophen 650 MG Suppository PR PRN (00:46)
[2022-11-02] MEDS ORDERED: Ketorolac Tromethamine 30 MG/ML VIAL IVP SCH (02:30)
[2022-11-02 04:45] LABS: Hemoglobin 11.9 g/dL (12.0-16.0); Mean Corpuscular HGB CONC 32.1 g/dL (32.0-36.0); Mean Corpuscular Hemoglobin 27.2 pg (27.0-31.0); Mean Corpuscular Volume 84.9 fl (78.0-98.0); Mean Platelet Volume 11.3 fL (7.4-10.4); Platelet Count 217 10x3/uL (130-400); RBC Distribution Width 14.6 % (11.5-14.5); Red Blood Cell (RBC) Count 4.37 mill/uL (4.20-5.40); White Blood Cell (WBC) Count 20.6 10x3/uL (4.8-10.8)
[2022-11-02] MEDS: Levothyroxine Sodium 25 MCG TAB PO SCH (04:59)
[2022-11-02 05:12] LABS: Delete Auto Diff?? YES; Manual Diff?? YES
[2022-11-02 05:13] LABS: Anion Gap 14 mmol/L (10-20); BUN (Urea Nitrogen) 17 mg/dL (9.8-20.1); Calc. Creatinine Clearance 84 mL/min (70-130); Calcium 9.2 mg/dL (7.8-10.44); Carbon Dioxide 19 mmol/L (23-31); Chloride 111 mmol/L (98-107); Estimated GFR 84; Glucose 120 mg/dL (80-115); Magnesium 1.7 mg/dL (1.6-2.6); Potassium 3.9 mmol/L (3.5-5.1); Sodium 140 mmol/L (136-145)
[2022-11-02] MEDS ORDERED: VANCOMYCIN 1.25 GM/250 ML BAG 1.25 GM in Premix Bag 1 BAG IVPB SCH (06:00)
[2022-11-02 06:59] LABS: Anisocytosis SLIGHT = 6-15 cells HPF (0-5); Band 41 % (5-11); CellaVision Operator ID LAB.JMM; Lymphocytes 5 % (21-51); Myelocyte 1 % (0-0); Neutrophil 53 % (42-75); Platelet Adequacy Comment Platelets Normal; Total Cell Count 102
[2022-11-02] MEDS: dilTIAZem 30 MG TAB PO SCH ×3 (09:22→21:04)
[2022-11-02] MEDS: Senokot S 8.6-50 MG TAB PO SCH ×2 (09:22→21:04)
[2022-11-02] MEDS: Venlafaxine HCl XR 75 MG CAP PO SCH (09:23)
[2022-11-02] MEDS: Piperacillin/Tazobactam 3.375 GM in Sodium Chloride 0.9% 100 ML IVPB SCH ×2 (09:26→16:00)
[2022-11-02] MEDS: Aspirin 300 MG Suppository PR SCH (09:27)
[2022-11-02] MEDS ORDERED: Mineral Oil ENEMA PR SCH (10:00)
[2022-11-02] MEDS ORDERED: Lorazepam 2 MG/ML VIAL SLOW IVP SCH (21:00)
[2022-11-02] MEDS: Pantoprazole 40 MG VIAL IVP SCH (21:03)
[2022-11-02] MEDS: Atorvastatin Calcium 20 MG TAB PO SCH (21:04)
[2022-11-03 00:05] LABS: Hemoglobin 11.3 g/dL (12.0-16.0); Mean Corpuscular Hemoglobin 26.9 pg (27.0-31.0); Mean Platelet Volume 10.3 fL (7.4-10.4); Platelet Count 219 10x3/uL (130-400); RBC Distribution Width 14.6 % (11.5-14.5); White Blood Cell (WBC) Count 20.4 10x3/uL (4.8-10.8)
[2022-11-03 00:09] LABS: Delete Auto Diff?? YES; Manual Diff?? YES
[2022-11-03 00:10] LABS: Mean Corpuscular Volume 81.4 fl (78.0-98.0)
[2022-11-03 00:15] LABS: Actual Bicarbonate (HCO3a) 23.5 mEq/L (22-28); Base Excess (BEa) 0.2 mEq/L (-2.0 to +3.0); CO2 Tension 33.7 mmHg (35.0-45.0); Calcium, Ionized (arterial) 1.18 mmol/L (1.12-1.30); Carboxyhemoglobin (COHb) 0.3 gm% (0.0-3.0); Hematocrit-ABG 36 % (36.0-47.0); Hemoglobin (Hb) 12.2 g/dL (12.0-16.0); O2 Tension (PaO2), arterial 66.9 mmHg (> 70.0); Potassium - ABG Lab 3.14 mmol/L (3.70-5.30); pH, Arterial 7.461 (7.35-7.45)
[2022-11-03 00:18] LABS: Puncture Site LBA
[2022-11-03 00:19] LABS: ALV-art Gradient 90.615 mmHg (0-20)
[2022-11-03 00:27] LABS: Lactic Acid 1.9 mmol/L (0.5-2.2)
[2022-11-03 00:31] LABS: Band 2 % (5-11); CellaVision Operator ID lab.abc; Eosinophils 2 % (0-10); Lymphocytes 4 % (21-51); Monocytes 4 % (0-10); Neutrophil 88 % (42-75); Platelet Adequacy Comment Platelets Normal; RBC Morphology Within Normal Limits; Total Cell Count 101
[2022-11-03 00:32] LABS: ALT (SGPT) 23 U/L (8-55); AST (SGOT) 32 U/L (5-34); Albumin 3.2 g/dL (3.4-4.8); Alkaline Phosphatase 98 U/L (40-110); Anion Gap 13 mmol/L (10-20); BUN (Urea Nitrogen) 10 mg/dL (9.8-20.1); Bilirubin, Total 0.6 mg/dL (0.2-1.2); Calc. Creatinine Clearance 85 mL/min (70-130); Calcium 9.3 mg/dL (7.8-10.44); Carbon Dioxide 22 mmol/L (23-31); Chloride 105 mmol/L (98-107); Estimated GFR 86; Globulin 3.4 g/dL (2.4-3.5); Glucose 131 mg/dL (80-115); Potassium 3.3 mmol/L (3.5-5.1); Protein, Total 6.6 g/dL (5.8-8.1); Sodium 137 mmol/L (136-145)
[2022-11-03] MEDS: Piperacillin/Tazobactam 3.375 GM in Sodium Chloride 0.9% 100 ML IVPB SCH ×2 (00:52→08:58)
[2022-11-03] MEDS: Acetaminophen 650 MG Suppository PR PRN ×2 (04:17→08:52)
[2022-11-03 05:20] LABS: Hemoglobin 12.7 g/dL (12.0-16.0); Mean Corpuscular HGB CONC 32.4 g/dL (32.0-36.0); Mean Corpuscular Hemoglobin 26.7 pg (27.0-31.0); Mean Corpuscular Volume 82.5 fl (78.0-98.0); Mean Platelet Volume 10.7 fL (7.4-10.4); Platelet Count 232 10x3/uL (130-400); RBC Distribution Width 14.6 % (11.5-14.5); Red Blood Cell (RBC) Count 4.75 mill/uL (4.20-5.40); White Blood Cell (WBC) Count 20.8 10x3/uL (4.8-10.8)
[2022-11-03 05:31] LABS: Delete Auto Diff?? YES; Manual Diff?? YES
[2022-11-03] MEDS: Levothyroxine Sodium 25 MCG TAB PO SCH (05:38)
[2022-11-03 05:47] LABS: Vancomycin, Trough 7.2 ug/mL
[2022-11-03 05:49] LABS: Anion Gap 14 mmol/L (10-20); BUN (Urea Nitrogen) 10 mg/dL (9.8-20.1); Calc. Creatinine Clearance 84 mL/min (70-130); Calcium 9.7 mg/dL (7.8-10.44); Carbon Dioxide 20 mmol/L (23-31); Chloride 105 mmol/L (98-107); Estimated GFR 84; Glucose 122 mg/dL (80-115); Potassium 3.3 mmol/L (3.5-5.1); Sodium 136 mmol/L (136-145)
[2022-11-03 06:00] LABS: Band 6 % (5-11); CellaVision Operator ID lab.abc; Lymphocytes 4 % (21-51); Neutrophil 89 % (42-75); Platelet Adequacy Comment Platelets Normal; RBC Morphology Within Normal Limits; Total Cell Count 100
[2022-11-03] MEDS: VANCOMYCIN 1.25 GM/250 ML BAG 1.25 GM in Premix Bag 1 BAG IVPB SCH ×2 (06:33→18:04)
[2022-11-03] MEDS: Aspirin 300 MG Suppository PR SCH (08:58)
[2022-11-03] MEDS: Pantoprazole 40 MG VIAL IVP SCH ×2 (08:58→21:29)
[2022-11-03] MEDS: Venlafaxine HCl XR 75 MG CAP PO SCH (09:11)
[2022-11-03] MEDS: Senokot S 8.6-50 MG TAB PO SCH ×2 (09:11→21:29)
[2022-11-03] MEDS: dilTIAZem 30 MG TAB PO SCH ×3 (09:11→21:29)
[2022-11-03] MEDS ORDERED: Meropenem 1 GM in Sodium Chloride 0.9% 100 ML IVPB SCH ×2 (13:00→14:00)
[2022-11-03 17:15] LABS: Strep pneumo Urine Ag NEGATIVE (NEGATIVE)
[2022-11-03] MEDS: Meropenem 1 GM in Sodium Chloride 0.9% 100 ML IVPB SCH (21:29)
[2022-11-03] MEDS: Atorvastatin Calcium 20 MG TAB PO SCH (21:29)
[2022-11-03] MEDS: Acetaminophen 325 MG TAB PO PRN (23:16)
[2022-11-04] MEDS: Meropenem 1 GM in Sodium Chloride 0.9% 100 ML IVPB SCH ×3 (05:47→21:37)
[2022-11-04] MEDS: Levothyroxine Sodium 25 MCG TAB PO SCH (05:47)
[2022-11-04 08:04] LABS: #Basophils 0.1 thou/uL (0.0-0.2); #Eosinphils 0.3 thou/uL (0.0-0.7); #Monocytes 0.9 thou/uL (0.11-0.59); #Neutrophils 15.8 thou/uL (1.40-6.50); %Basophils 0.4 % (0.0-1.0); %Eosinophils 1.4 % (0.0-10.0); %Lymphocytes 5.3 % (21.0-51.0); %Monocytes 4.8 % (0.0-10.0); %Neutrophils 87.6 % (42.0-75.0); Hemoglobin 13.1 g/dL (12.0-16.0); Mean Corpuscular HGB CONC 33.1 g/dL (32.0-36.0); Mean Corpuscular Hemoglobin 27.2 pg (27.0-31.0); Mean Corpuscular Volume 82.2 fl (78.0-98.0); Mean Platelet Volume 10.6 fL (7.4-10.4); Platelet Count 276 10x3/uL (130-400); RBC Distribution Width 14.3 % (11.5-14.5); Red Blood Cell (RBC) Count 4.82 mill/uL (4.20-5.40)
[2022-11-04 08:25] LABS: Anion Gap 16 mmol/L (10-20); BUN (Urea Nitrogen) 9 mg/dL (9.8-20.1); Calc. Creatinine Clearance 87 mL/min (70-130); Carbon Dioxide 25 mmol/L (23-31); Chloride 103 mmol/L (98-107); Estimated GFR 88; Glucose 115 mg/dL (80-115); Potassium 2.9 mmol/L (3.5-5.1); Sodium 141 mmol/L (136-145)
[2022-11-04] MEDS: VANCOMYCIN 1.25 GM/250 ML BAG 1.25 GM in Premix Bag 1 BAG IVPB SCH (09:39)
[2022-11-04] MEDS: dilTIAZem 30 MG TAB PO SCH ×3 (09:44→21:35)
[2022-11-04] MEDS: Pantoprazole 40 MG VIAL IVP SCH ×2 (09:44→21:38)
[2022-11-04] MEDS: Venlafaxine HCl XR 75 MG CAP PO SCH (09:44)
[2022-11-04] MEDS: Senokot S 8.6-50 MG TAB PO SCH ×2 (09:44→21:36)
[2022-11-04] MEDS: Aspirin 300 MG Suppository PR SCH (09:45)
[2022-11-04] MEDS: Acetaminophen 325 MG TAB PO PRN (12:19)
[2022-11-04] MEDS: Potassium Chloride 10 MEQ in Premix Bag 1 BAG IVPB SCH (13:28)
[2022-11-04] MEDS ORDERED: Vancomycin 1 GM in Premix Bag 1 BAG IVPB SCH (18:00)
[2022-11-04] MEDS ORDERED: VANCOMYCIN 1.25 GM/250 ML BAG 1.25 GM in Premix Bag 1 BAG IVPB SCH (18:15)
[2022-11-04] MEDS: Atorvastatin Calcium 20 MG TAB PO SCH (21:35)
[2022-11-05] MEDS: Potassium Chloride 10 MEQ in Premix Bag 1 BAG IVPB SCH (01:29)
[2022-11-05] MEDS: GUAIFENESIN SF SOLN 200 MG/10 ML UDCUP PO PRN ×3 (01:54→20:30)
[2022-11-05] MEDS: Meropenem 1 GM in Sodium Chloride 0.9% 100 ML IVPB SCH ×3 (05:49→20:30)
[2022-11-05] MEDS: VANCOMYCIN 1.25 GM/250 ML BAG 1.25 GM in Premix Bag 1 BAG IVPB SCH ×2 (05:49→18:47)
[2022-11-05] MEDS: dilTIAZem 30 MG TAB PO SCH ×3 (08:19→20:37)
[2022-11-05] MEDS: Aspirin 300 MG Suppository PR SCH (08:19)
[2022-11-05] MEDS: Pantoprazole 40 MG VIAL IVP SCH ×2 (08:21→20:37)
[2022-11-05] MEDS: Senokot S 8.6-50 MG TAB PO SCH ×2 (08:21→20:37)
[2022-11-05] MEDS: Venlafaxine HCl XR 75 MG CAP PO SCH (08:22)
[2022-11-05 10:40] LABS: #Eosinphils 0.3 thou/uL (0.0-0.7); #Monocytes 1.1 thou/uL (0.11-0.59); #Neutrophils 8.2 thou/uL (1.40-6.50); %Basophils 0.4 % (0.0-1.0); %Eosinophils 2.7 % (0.0-10.0); %Lymphocytes 10.9 % (21.0-51.0); %Monocytes 10.1 % (0.0-10.0); %Neutrophils 75.1 % (42.0-75.0); Hemoglobin 10.7 g/dL (12.0-16.0); Mean Corpuscular HGB CONC 33.4 g/dL (32.0-36.0); Mean Corpuscular Hemoglobin 27.2 pg (27.0-31.0); Mean Corpuscular Volume 81.2 fl (78.0-98.0); Mean Platelet Volume 10.1 fL (7.4-10.4); Platelet Count 272 10x3/uL (130-400); RBC Distribution Width 13.8 % (11.5-14.5); Red Blood Cell (RBC) Count 3.94 mill/uL (4.20-5.40); White Blood Cell (WBC) Count 10.9 10x3/uL (4.8-10.8)
[2022-11-05 11:08] LABS: Anion Gap 14 mmol/L (10-20); BUN (Urea Nitrogen) 10 mg/dL (9.8-20.1); Calc. Creatinine Clearance 91 mL/min (70-130); Calcium 9.1 mg/dL (7.8-10.44); Carbon Dioxide 27 mmol/L (23-31); Chloride 98 mmol/L (98-107); Estimated GFR 93; Glucose 138 mg/dL (80-115); Magnesium 1.6 mg/dL (1.6-2.6); Potassium 2.7 mmol/L (3.5-5.1); Sodium 136 mmol/L (136-145)
[2022-11-05 11:11] LABS: Phosphorus 1.5 mg/dL (2.3-4.7)
[2022-11-05] MEDS: Potassium Chloride 20 MEQ in Premix Bag 1 BAG IVPB SCH ×2 (11:33→15:27)
[2022-11-05] MEDS ORDERED: Potassium Chloride 20 MEQ TAB PO SCH (12:00)
[2022-11-05] MEDS ORDERED: Potassium Phosphate 30 MMOL in Sodium Chloride 0.9% 500 ML IVPB SCH (12:00)
[2022-11-05 17:37] LABS: L.pneumophilia Abs <0.91 OD ratio (0.00-0.90)
[2022-11-05 20:13] LABS: Mycoplasma pneumoniae IgG AB 182 U/mL (0-99); Mycoplasma pneumoniae IgM AB Less than 770 U/mL (0-769)
[2022-11-05] MEDS: Atorvastatin Calcium 20 MG TAB PO SCH (20:37)
[2022-11-05 21:52] LABS: Hemoglobin 12.7 g/dL (12.0-16.0); Platelet Count 285 10x3/uL (130-400)
[2022-11-05] MEDS: Ipratropium/Albuterol 3 ML NEB EZPAP PRN (21:58)
[2022-11-05 22:04] LABS: Bilirubin Negative (Negative); Blood, Urine Large (Negative); Glucose, Urine (Dipstick) Negative (Negative); Ketone, Urine 15 mg/dL (Negative); Leukocyte Negative (Negative); Nitrite Negative (Negative); Protein, Urine (Dipstick) 30 mg/dL (Neg-Trace); Specific Gravity, Urine 1.025 (1.005-1.030); Urobilinogen 0.2 mg/dL (Less than 2)
[2022-11-05 22:17] LABS: Clarity Cloudy (Clear)
[2022-11-05 22:21] LABS: RBC/HPF Greater than 50 HPF (0-3)
[2022-11-05 22:22] LABS: Bacteria/HPF Rare-Few HPF (None Seen); CAUTI Indications for Culture Acute Hematuria; Squamous Epithelial 0-3 HPF (0-3)
[2022-11-05 22:24] LABS: Urine Culture Reflex No No
[2022-11-06] MEDS: Meropenem 1 GM in Sodium Chloride 0.9% 100 ML IVPB SCH ×3 (04:21→20:03)
[2022-11-06 04:50] LABS: #Eosinphils 0.4 thou/uL (0.0-0.7); #Monocytes 1.2 thou/uL (0.11-0.59); #Neutrophils 6.3 thou/uL (1.40-6.50); %Basophils 0.3 % (0.0-1.0); %Eosinophils 3.9 % (0.0-10.0); %Lymphocytes 14.9 % (21.0-51.0); %Monocytes 12.4 % (0.0-10.0); %Neutrophils 67.6 % (42.0-75.0); Hemoglobin 10.4 g/dL (12.0-16.0); Mean Corpuscular HGB CONC 33.5 g/dL (32.0-36.0); Mean Corpuscular Hemoglobin 27.1 pg (27.0-31.0); Mean Corpuscular Volume 80.7 fl (78.0-98.0); Mean Platelet Volume 9.8 fL (7.4-10.4); Platelet Count 273 10x3/uL (130-400); RBC Distribution Width 13.9 % (11.5-14.5); Red Blood Cell (RBC) Count 3.84 mill/uL (4.20-5.40); White Blood Cell (WBC) Count 9.3 10x3/uL (4.8-10.8)
[2022-11-06 05:12] LABS: Vancomycin, Trough 21.8 ug/mL
[2022-11-06 05:13] LABS: Anion Gap 12 mmol/L (10-20); BUN (Urea Nitrogen) 8 mg/dL (9.8-20.1); Calc. Creatinine Clearance 97 mL/min (70-130); Calcium 8.9 mg/dL (7.8-10.44); Carbon Dioxide 28 mmol/L (23-31); Chloride 99 mmol/L (98-107); Estimated GFR 94; Glucose 130 mg/dL (80-115); Magnesium 1.5 mg/dL (1.6-2.6); Potassium 3.3 mmol/L (3.5-5.1); Sodium 136 mmol/L (136-145)
[2022-11-06 05:16] LABS: Phosphorus 1.5 mg/dL (2.3-4.7)
[2022-11-06] MEDS: Vancomycin 1 GM in Premix Bag 1 BAG IVPB SCH ×2 (05:48→17:35)
[2022-11-06] MEDS: GUAIFENESIN SF SOLN 200 MG/10 ML UDCUP PO PRN ×4 (05:53→20:02)
[2022-11-06] MEDS ORDERED: Magnesium 2 GM/50 ML(in water) 2 GM in Premix Bag 1 BAG IVPB SCH (08:00)
[2022-11-06] MEDS ORDERED: Potassium Chloride 20 MEQ TAB PO SCH (08:00)
[2022-11-06] MEDS ORDERED: Potassium Chloride 20 MEQ in Premix Bag 1 BAG IVPB SCH (08:00)
[2022-11-06] MEDS: Senokot S 8.6-50 MG TAB PO SCH ×2 (08:44→20:06)
[2022-11-06] MEDS: Pantoprazole 40 MG VIAL IVP SCH ×2 (08:44→20:07)
[2022-11-06] MEDS: dilTIAZem 30 MG TAB PO SCH ×3 (08:44→20:07)
[2022-11-06] MEDS: Aspirin Chewable 81 MG TAB PO SCH (08:45)
[2022-11-06] MEDS: Venlafaxine HCl XR 75 MG CAP PO SCH (08:47)
[2022-11-06] MEDS ORDERED: Potassium Phosphate 30 MMOL in Sodium Chloride 0.9% 500 ML IVPB SCH (09:00)
[2022-11-06] MEDS ORDERED: Venlafaxine 75 MG TAB PO SCH ×2 (11:26→11:27)
[2022-11-06] MEDS ORDERED: Venlafaxine HCl 37.5 MG TAB PO SCH (11:45)
[2022-11-06 13:15] LABS: #Eosinphils 0.4 thou/uL (0.0-0.7); #Monocytes 1.3 thou/uL (0.11-0.59); #Neutrophils 7.6 thou/uL (1.40-6.50); %Basophils 0.4 % (0.0-1.0); %Eosinophils 3.7 % (0.0-10.0); %Lymphocytes 13.8 % (21.0-51.0); %Monocytes 11.9 % (0.0-10.0); %Neutrophils 68.9 % (42.0-75.0); Hemoglobin 11.8 g/dL (12.0-16.0); Mean Corpuscular HGB CONC 33.6 g/dL (32.0-36.0); Mean Corpuscular Hemoglobin 26.9 pg (27.0-31.0); Mean Corpuscular Volume 80.1 fl (78.0-98.0); Mean Platelet Volume 10.4 fL (7.4-10.4); Platelet Count 295 10x3/uL (130-400); RBC Distribution Width 13.9 % (11.5-14.5); Red Blood Cell (RBC) Count 4.38 mill/uL (4.20-5.40); White Blood Cell (WBC) Count 11.1 10x3/uL (4.8-10.8)
[2022-11-06] MEDS: Venlafaxine HCl 37.5 MG TAB PO SCH (20:03)
[2022-11-06] MEDS: Atorvastatin Calcium 20 MG TAB PO SCH (20:06)
[2022-11-06] MEDS: Ipratropium/Albuterol 3 ML NEB EZPAP PRN (21:12)
[2022-11-06] MEDS ORDERED: Clindamycin/D5W 900 MG in Premix Bag 1 BAG IVPB SCH (22:00)
[2022-11-07] MEDS: GUAIFENESIN SF SOLN 200 MG/10 ML UDCUP PO PRN ×2 (02:18→09:07)
[2022-11-07] MEDS: Meropenem 1 GM in Sodium Chloride 0.9% 100 ML IVPB SCH ×3 (04:38→21:23)
[2022-11-07] MEDS: Vancomycin 1 GM in Premix Bag 1 BAG IVPB SCH (05:44)
[2022-11-07 07:41] LABS: #Eosinphils 0.4 thou/uL (0.0-0.7); #Monocytes 0.9 thou/uL (0.11-0.59); #Neutrophils 6.5 thou/uL (1.40-6.50); %Basophils 0.3 % (0.0-1.0); %Eosinophils 4.2 % (0.0-10.0); %Lymphocytes 14.4 % (21.0-51.0); %Monocytes 9.5 % (0.0-10.0); %Neutrophils 70.5 % (42.0-75.0); Hemoglobin 10.8 g/dL (12.0-16.0); Mean Corpuscular HGB CONC 32.9 g/dL (32.0-36.0); Mean Platelet Volume 9.4 fL (7.4-10.4); Platelet Count 284 10x3/uL (130-400); RBC Distribution Width 14.1 % (11.5-14.5); White Blood Cell (WBC) Count 9.3 10x3/uL (4.8-10.8)
[2022-11-07 07:55] LABS: Anion Gap 12 mmol/L (10-20); BUN (Urea Nitrogen) 9 mg/dL (9.8-20.1); Calc. Creatinine Clearance 95 mL/min (70-130); Calcium 9.1 mg/dL (7.8-10.44); Carbon Dioxide 30 mmol/L (23-31); Chloride 98 mmol/L (98-107); Estimated GFR 94; Glucose 160 mg/dL (80-115); Potassium 3.7 mmol/L (3.5-5.1); Sodium 136 mmol/L (136-145)
[2022-11-07] MEDS ORDERED: Electrolyte Replacement Protocol 1 EACH FS SCH (08:00)
[2022-11-07 08:30] LABS: Magnesium 1.8 mg/dL (1.6-2.6)
[2022-11-07] MEDS: Senokot S 8.6-50 MG TAB PO SCH ×2 (09:08→21:23)
[2022-11-07] MEDS: dilTIAZem 30 MG TAB PO SCH ×3 (09:09→21:24)
[2022-11-07] MEDS: Aspirin Chewable 81 MG TAB PO SCH (09:09)
[2022-11-07] MEDS: Pantoprazole 40 MG VIAL IVP SCH ×2 (09:09→21:24)
[2022-11-07] MEDS: Venlafaxine HCl 37.5 MG TAB PO SCH ×2 (09:09→21:23)
[2022-11-07] MEDS ORDERED: Preparation H Ointment 28 GM TUBE TOP PRN (10:43)
[2022-11-07] MEDS ORDERED: Magnesium 2 GM/50 ML(in water) 2 GM in Premix Bag 1 BAG IVPB SCH (11:30)
[2022-11-07] MEDS: GUAIFENESIN SF SOLN 200 MG/10 ML UDCUP PO SCH ×3 (12:01→21:23)
[2022-11-07] MEDS: PHOS-NAK 1 PKT PACK PO SCH ×2 (12:02→16:17)
[2022-11-07 17:20] LABS: Vancomycin, Trough 20.4 ug/mL
[2022-11-07] MEDS: HumaLOG 300 UNITS/3 ML VIAL SC PRN (17:55)
[2022-11-07] MEDS: Vancomycin HCl 750 MG in Sodium Chloride 0.9% 250 ML 250 ML IVPB SCH (17:56)
[2022-11-07] MEDS: Atorvastatin Calcium 20 MG TAB PO SCH (21:23)
[2022-11-08] MEDS: GUAIFENESIN SF SOLN 200 MG/10 ML UDCUP PO SCH ×6 (00:46→21:20)
[2022-11-08] MEDS: Meropenem 1 GM in Sodium Chloride 0.9% 100 ML IVPB SCH ×3 (05:31→21:21)
[2022-11-08] MEDS: Vancomycin HCl 750 MG in Sodium Chloride 0.9% 250 ML 250 ML IVPB SCH ×2 (05:36→17:44)
[2022-11-08] MEDS: dilTIAZem 30 MG TAB PO SCH ×3 (08:44→21:21)
[2022-11-08] MEDS: Aspirin Chewable 81 MG TAB PO SCH (08:44)
[2022-11-08] MEDS: Senokot S 8.6-50 MG TAB PO SCH ×2 (08:45→21:21)
[2022-11-08] MEDS: Venlafaxine HCl 37.5 MG TAB PO SCH ×2 (08:45→21:21)
[2022-11-08] MEDS: Pantoprazole 40 MG VIAL IVP SCH ×2 (08:46→21:22)
[2022-11-08] MEDS: HumaLOG 300 UNITS/3 ML VIAL SC PRN (14:22)
[2022-11-08] MEDS: Apixaban 5 MG TAB PO SCH (21:21)
[2022-11-08] MEDS: Atorvastatin Calcium 20 MG TAB PO SCH (21:21)
[2022-11-09] MEDS: GUAIFENESIN SF SOLN 200 MG/10 ML UDCUP PO SCH ×4 (00:28→13:40)
[2022-11-09] MEDS: Meropenem 1 GM in Sodium Chloride 0.9% 100 ML IVPB SCH ×3 (04:16→21:57)
[2022-11-09 05:40] LABS: Vancomycin, Trough 17.4 ug/mL
[2022-11-09] MEDS: Vancomycin HCl 750 MG in Sodium Chloride 0.9% 250 ML 250 ML IVPB SCH ×2 (06:13→18:03)
[2022-11-09] MEDS: HumaLOG 300 UNITS/3 ML VIAL SC PRN (06:13)
[2022-11-09] MEDS: dilTIAZem 30 MG TAB PO SCH ×3 (09:07→21:58)
[2022-11-09] MEDS: Apixaban 5 MG TAB PO SCH ×2 (09:07→21:59)
[2022-11-09] MEDS: Senokot S 8.6-50 MG TAB PO SCH ×2 (09:07→21:59)
[2022-11-09] MEDS: Acetaminophen 325 MG TAB PO PRN (09:07)
[2022-11-09] MEDS: Benzonatate 100 MG CAP PO PRN ×2 (09:07→21:59)
[2022-11-09] MEDS: Aspirin Chewable 81 MG TAB PO SCH (09:07)
[2022-11-09] MEDS: Pantoprazole 40 MG VIAL IVP SCH ×2 (09:08→21:57)
[2022-11-09] MEDS: Venlafaxine HCl 37.5 MG TAB PO SCH ×2 (09:31→21:58)
[2022-11-09 15:22] LABS: Magnesium 1.7 mg/dL (1.6-2.6); Phosphorus 3.3 mg/dL (2.3-4.7); Potassium 3.7 mmol/L (3.5-5.1)
[2022-11-09] MEDS: Atorvastatin Calcium 20 MG TAB PO SCH (21:59)
[2022-11-10] MEDS: Vancomycin HCl 750 MG in Sodium Chloride 0.9% 250 ML 250 ML IVPB SCH (05:02)
[2022-11-10] MEDS: Meropenem 1 GM in Sodium Chloride 0.9% 100 ML IVPB SCH (05:02)
[2022-11-10 06:39] LABS: #Eosinphils 0.6 thou/uL (0.0-0.7); #Monocytes 0.8 thou/uL (0.11-0.59); %Basophils 0.3 % (0.0-1.0); %Eosinophils 5.6 % (0.0-10.0); %Lymphocytes 14.7 % (21.0-51.0); %Monocytes 8.2 % (0.0-10.0); %Neutrophils 70.5 % (42.0-75.0); Mean Corpuscular HGB CONC 33.1 g/dL (32.0-36.0); Mean Corpuscular Hemoglobin 26.6 pg (27.0-31.0); Mean Corpuscular Volume 80.2 fl (78.0-98.0); Platelet Count 413 10x3/uL (130-400); RBC Distribution Width 13.7 % (11.5-14.5); Red Blood Cell (RBC) Count 4.14 mill/uL (4.20-5.40); White Blood Cell (WBC) Count 9.9 10x3/uL (4.8-10.8)
[2022-11-10 07:20] LABS: ALT (SGPT) 30 U/L (8-55); AST (SGOT) 24 U/L (5-34); Alkaline Phosphatase 119 U/L (40-110); Anion Gap 12 mmol/L (10-20); BUN (Urea Nitrogen) 15 mg/dL (9.8-20.1); Bilirubin, Total 0.3 mg/dL (0.2-1.2); Calc. Creatinine Clearance 82 mL/min (70-130); Calcium 9.6 mg/dL (7.8-10.44); Carbon Dioxide 30 mmol/L (23-31); Chloride 97 mmol/L (98-107); Estimated GFR 82; Globulin 3.7 g/dL (2.4-3.5); Glucose 163 mg/dL (80-115); Potassium 4.1 mmol/L (3.5-5.1); Protein, Total 6.7 g/dL (5.8-8.1); Sodium 135 mmol/L (136-145)
[2022-11-10] MEDS ORDERED: Magnesium 2 GM/50 ML(in water) 2 GM in Premix Bag 1 BAG IVPB SCH (08:00)
[2022-11-10] MEDS: Senokot S 8.6-50 MG TAB PO SCH ×2 (09:47→21:28)
[2022-11-10] MEDS: Apixaban 5 MG TAB PO SCH ×2 (09:47→21:28)
[2022-11-10] MEDS: Venlafaxine HCl 37.5 MG TAB PO SCH ×2 (09:47→22:04)
[2022-11-10] MEDS: dilTIAZem 30 MG TAB PO SCH ×2 (09:47→16:45)
[2022-11-10] MEDS: Aspirin Chewable 81 MG TAB PO SCH (09:47)
[2022-11-10] MEDS: Amoxicillin/Potassium Clav 600 mg/5 ml Oral Suspension PO SCH ×2 (09:47→22:04)
[2022-11-10] MEDS: Pantoprazole 40 MG VIAL IVP SCH (09:47)
[2022-11-10] MEDS: HumaLOG 300 UNITS/3 ML VIAL SC PRN ×2 (13:57→17:36)
[2022-11-10] MEDS: Ipratropium/Albuterol 3 ML NEB EZPAP SCH ×3 (14:41→18:55)
[2022-11-10] MEDS ORDERED: Sodium Chloride 0.9% 500 ML IV SCH (17:30)
[2022-11-10] MEDS: Polyethylene Glycol 3350 17 GM Packet PO PRN (18:10)
[2022-11-10] MEDS: Metoprolol Tartrate 25 MG TAB PO SCH (21:28)
[2022-11-10] MEDS: Atorvastatin Calcium 40 MG TAB PO SCH (21:28)
[2022-11-10] MEDS: Pantoprazole 40 MG GRANULES PACKET PO SCH (21:28)
[2022-11-10] MEDS ORDERED: Ipratropium/Albuterol 3 ML NEB ONE (23:00)
[2022-11-11 05:31] LABS: #Basophils 0.1 thou/uL (0.0-0.2); #Eosinphils 0.6 thou/uL (0.0-0.7); #Monocytes 0.8 thou/uL (0.11-0.59); #Neutrophils 6.6 thou/uL (1.40-6.50); %Basophils 0.5 % (0.0-1.0); %Eosinophils 5.7 % (0.0-10.0); %Lymphocytes 16.2 % (21.0-51.0); %Monocytes 8.7 % (0.0-10.0); %Neutrophils 68.3 % (42.0-75.0); Hemoglobin 10.9 g/dL (12.0-16.0); Mean Corpuscular HGB CONC 32.2 g/dL (32.0-36.0); Mean Corpuscular Hemoglobin 26.8 pg (27.0-31.0); Platelet Count 447 10x3/uL (130-400); RBC Distribution Width 13.8 % (11.5-14.5); Red Blood Cell (RBC) Count 4.06 mill/uL (4.20-5.40); White Blood Cell (WBC) Count 9.7 10x3/uL (4.8-10.8)
[2022-11-11 05:46] LABS: Mean Corpuscular Volume 83.3 fl (78.0-98.0)
[2022-11-11 06:07] LABS: Anion Gap 12 mmol/L (10-20); BUN (Urea Nitrogen) 21 mg/dL (9.8-20.1); Calc. Creatinine Clearance 84 mL/min (70-130); Calcium 9.5 mg/dL (7.8-10.44); Carbon Dioxide 30 mmol/L (23-31); Chloride 100 mmol/L (98-107); Estimated GFR 84; Glucose 177 mg/dL (80-115); Magnesium 2.1 mg/dL (1.6-2.6); Potassium 4.6 mmol/L (3.5-5.1); Sodium 137 mmol/L (136-145)
[2022-11-11] MEDS: HumaLOG 300 UNITS/3 ML VIAL SC PRN ×2 (06:45→18:18)
[2022-11-11] MEDS: Ipratropium/Albuterol 3 ML NEB EZPAP SCH ×4 (07:48→18:34)
[2022-11-11] MEDS: Amoxicillin/Potassium Clav 600 mg/5 ml Oral Suspension PO SCH ×2 (10:53→21:35)
[2022-11-11] MEDS: Venlafaxine HCl 37.5 MG TAB PO SCH ×2 (10:54→21:36)
[2022-11-11] MEDS: Benzonatate 100 MG CAP PO PRN (10:54)
[2022-11-11] MEDS: Senokot S 8.6-50 MG TAB PO SCH ×2 (10:54→21:35)
[2022-11-11] MEDS: Aspirin Chewable 81 MG TAB PO SCH (10:54)
[2022-11-11] MEDS: Metoprolol Tartrate 25 MG TAB PO SCH ×2 (10:54→21:37)
[2022-11-11] MEDS: Pantoprazole 40 MG GRANULES PACKET PO SCH ×2 (10:54→21:35)
[2022-11-11] MEDS ORDERED: dilTIAZem 30 MG TAB PO SCH (15:00)
[2022-11-11] MEDS: Polyethylene Glycol 3350 17 GM Packet PO PRN (18:18)
[2022-11-11] MEDS: Atorvastatin Calcium 40 MG TAB PO SCH (21:35)
[2022-11-11] MEDS ORDERED: Ipratropium/Albuterol 3 ML NEB ONE (22:11)
[2022-11-12] MEDS: Ipratropium/Albuterol 3 ML NEB EZPAP SCH ×4 (06:45→18:39)
[2022-11-12] MEDS: Amoxicillin/Potassium Clav 600 mg/5 ml Oral Suspension PO SCH ×2 (10:04→21:45)
[2022-11-12] MEDS: Aspirin Chewable 81 MG TAB PO SCH (10:04)
[2022-11-12] MEDS: Metoprolol Tartrate 25 MG TAB PO SCH ×2 (10:04→21:44)
[2022-11-12] MEDS: Pantoprazole 40 MG GRANULES PACKET PO SCH ×2 (10:05→21:44)
[2022-11-12] MEDS: Venlafaxine HCl 37.5 MG TAB PO SCH ×2 (10:05→21:44)
[2022-11-12] MEDS: Senokot S 8.6-50 MG TAB PO SCH ×2 (10:05→21:44)
[2022-11-12] MEDS ORDERED: Dexmedetomidine 200 MCG/2 ML VIAL ONE (12:09)
[2022-11-12] MEDS ORDERED: Ketamine 50 MG/ML (10ML VIAL) ONE (12:09)
[2022-11-12] MEDS ORDERED: Midazolam HCl 2 mg/2 ml Vial ONE (12:09)
[2022-11-12] MEDS ORDERED: LevoFLOXacin 500 mg/D5W 100 ML BAG ONE (12:12)
[2022-11-12] MEDS ORDERED: Lidocaine 1% PF 5 ML VIAL ONE (12:24)
[2022-11-12] MEDS ORDERED: traMADol HCl 50 MG TAB PO PRN (19:57)
[2022-11-12] MEDS ORDERED: Morphine 2 MG/ML VIAL SLOW IVP SCH (20:15)
[2022-11-12] MEDS: Acetaminophen 325 MG TAB PO PRN (21:44)
[2022-11-12] MEDS: Atorvastatin Calcium 40 MG TAB PO SCH (21:44)
[2022-11-12] MEDS ORDERED: Ipratropium/Albuterol 3 ML NEB ONE (22:28)
[2022-11-13] MEDS: Ipratropium/Albuterol 3 ML NEB EZPAP SCH ×4 (07:24→18:25)
[2022-11-13] MEDS ORDERED: Sodium Chloride 0.9% 500 ML IV SCH (08:45)
[2022-11-13] MEDS: Aspirin Chewable 81 MG TAB PO SCH (09:34)
[2022-11-13] MEDS: Amoxicillin/Potassium Clav 600 mg/5 ml Oral Suspension PO SCH ×2 (09:34→22:22)
[2022-11-13] MEDS: Senokot S 8.6-50 MG TAB PO SCH ×2 (09:34→22:22)
[2022-11-13] MEDS: Pantoprazole 40 MG GRANULES PACKET PO SCH ×2 (09:34→22:21)
[2022-11-13] MEDS: Venlafaxine HCl 37.5 MG TAB PO SCH ×2 (09:34→22:22)
[2022-11-13] MEDS: Metoprolol Tartrate 25 MG TAB PO SCH (09:35)
[2022-11-13 11:07] LABS: #Eosinphils 0.4 thou/uL (0.0-0.7); #Monocytes 0.7 thou/uL (0.11-0.59); #Neutrophils 4.6 thou/uL (1.40-6.50); %Basophils 0.4 % (0.0-1.0); %Eosinophils 4.8 % (0.0-10.0); %Monocytes 9.2 % (0.0-10.0); %Neutrophils 63.1 % (42.0-75.0); Hemoglobin 10.6 g/dL (12.0-16.0); Mean Corpuscular HGB CONC 31.8 g/dL (32.0-36.0); Mean Corpuscular Volume 84.7 fl (78.0-98.0); Mean Platelet Volume 8.6 fL (7.4-10.4); Platelet Count 503 10x3/uL (130-400); Red Blood Cell (RBC) Count 3.93 mill/uL (4.20-5.40); White Blood Cell (WBC) Count 7.4 10x3/uL (4.8-10.8)
[2022-11-13 11:20] LABS: Anion Gap 15 mmol/L (10-20); BUN (Urea Nitrogen) 17 mg/dL (9.8-20.1); Calc. Creatinine Clearance 77 mL/min (70-130); Calcium 9.2 mg/dL (7.8-10.44); Carbon Dioxide 25 mmol/L (23-31); Chloride 102 mmol/L (98-107); Estimated GFR 76; Glucose 138 mg/dL (80-115); Potassium 3.7 mmol/L (3.5-5.1); Sodium 138 mmol/L (136-145)
[2022-11-13] MEDS: Acetaminophen 325 MG TAB PO PRN ×2 (11:49→22:52)
[2022-11-13] MEDS: Polyethylene Glycol 3350 17 GM Packet PO PRN (16:11)
[2022-11-13] MEDS ORDERED: Bisacodyl 10 MG SUPP PR PRN (16:25)
[2022-11-13] MEDS: HumaLOG 300 UNITS/3 ML VIAL SC PRN (18:37)
[2022-11-13] MEDS ORDERED: Apixaban 5 MG TAB PO SCH (21:00)
[2022-11-13] MEDS: Fleet Saline Enema 133 ML BOT PR SCH (22:07)
[2022-11-13] MEDS: Atorvastatin Calcium 40 MG TAB PO SCH (22:22)
[2022-11-13] MEDS: Bisacodyl 10 MG SUPP PR SCH (23:58)
[2022-11-14] MEDS: Levothyroxine Sodium 25 MCG TAB PO SCH (06:12)
[2022-11-14] MEDS: Fleet Saline Enema 133 ML BOT PR SCH ×4 (06:12→22:32)
[2022-11-14] MEDS: Acetaminophen 325 MG TAB PO PRN ×3 (06:24→19:51)
[2022-11-14] MEDS: Ipratropium/Albuterol 3 ML NEB EZPAP SCH ×3 (07:08→18:46)
[2022-11-14] MEDS: Amoxicillin/Potassium Clav 600 mg/5 ml Oral Suspension PO SCH ×2 (09:15→22:32)
[2022-11-14] MEDS: Senokot S 8.6-50 MG TAB PO SCH ×2 (09:16→22:31)
[2022-11-14] MEDS: Pantoprazole 40 MG GRANULES PACKET PO SCH ×2 (09:16→22:31)
[2022-11-14] MEDS: Venlafaxine HCl 37.5 MG TAB PO SCH ×2 (09:16→22:31)
[2022-11-14] MEDS: Aspirin Chewable 81 MG TAB PO SCH (09:16)
[2022-11-14] MEDS: Multivits W-Minerals Liquid 15 ML LIQ PER TUBE SCH (09:17)
[2022-11-14] MEDS: Bisacodyl 10 MG SUPP PR SCH (09:28)
[2022-11-14 09:58] LABS: #Basophils 0.1 thou/uL (0.0-0.2); #Eosinphils 0.4 thou/uL (0.0-0.7); #Monocytes 0.8 thou/uL (0.11-0.59); #Neutrophils 5.7 thou/uL (1.40-6.50); %Basophils 0.8 % (0.0-1.0); %Eosinophils 4.8 % (0.0-10.0); %Lymphocytes 17.1 % (21.0-51.0); %Monocytes 8.9 % (0.0-10.0); %Neutrophils 67.8 % (42.0-75.0); Hemoglobin 11.2 g/dL (12.0-16.0); Mean Corpuscular HGB CONC 31.7 g/dL (32.0-36.0); Mean Corpuscular Hemoglobin 26.5 pg (27.0-31.0); Mean Corpuscular Volume 83.6 fl (78.0-98.0); Mean Platelet Volume 8.8 fL (7.4-10.4); Platelet Count 565 10x3/uL (130-400); Red Blood Cell (RBC) Count 4.22 mill/uL (4.20-5.40); White Blood Cell (WBC) Count 8.4 10x3/uL (4.8-10.8)
[2022-11-14 10:21] LABS: Anion Gap 14 mmol/L (10-20); BUN (Urea Nitrogen) 17 mg/dL (9.8-20.1); Calc. Creatinine Clearance 79 mL/min (70-130); Calcium 9.9 mg/dL (7.8-10.44); Carbon Dioxide 27 mmol/L (23-31); Chloride 101 mmol/L (98-107); Estimated GFR 78; Glucose 173 mg/dL (80-115); Potassium 4.3 mmol/L (3.5-5.1); Sodium 138 mmol/L (136-145)
[2022-11-14] MEDS: HumaLOG 300 UNITS/3 ML VIAL SC PRN (13:39)
[2022-11-14] MEDS: Atorvastatin Calcium 40 MG TAB PO SCH (22:31)
[2022-11-15] MEDS: Acetaminophen 325 MG TAB PO PRN (03:27)
[2022-11-15] MEDS: Fleet Saline Enema 133 ML BOT PR SCH (03:55)
[2022-11-15] MEDS: Levothyroxine Sodium 25 MCG TAB PO SCH (06:05)
[2022-11-15] MEDS: Ipratropium/Albuterol 3 ML NEB EZPAP SCH ×3 (07:58→19:11)
[2022-11-15] MEDS: Aspirin Chewable 81 MG TAB PO SCH (09:24)
[2022-11-15] MEDS: Pantoprazole 40 MG GRANULES PACKET PO SCH ×2 (09:24→20:55)
[2022-11-15] MEDS: Venlafaxine HCl 37.5 MG TAB PO SCH ×2 (09:24→20:55)
[2022-11-15] MEDS: Senokot S 8.6-50 MG TAB PO SCH ×2 (09:24→20:55)
[2022-11-15] MEDS: Multivits W-Minerals Liquid 15 ML LIQ PER TUBE SCH (09:24)
[2022-11-15] MEDS: Polyethylene Glycol 3350 17 GM Packet PO SCH (09:25)
[2022-11-15] MEDS ORDERED: GUAIFENESIN SF SOLN 200 MG/10 ML UDCUP PER TUBE PRN (09:43)
[2022-11-15] MEDS: Amoxicillin/Potassium Clav 600 mg/5 ml Oral Suspension PO SCH ×2 (11:56→20:55)
[2022-11-15] MEDS: Acetaminophen 325 MG/10.15 ML UDCUP PER TUBE SCH ×2 (13:52→20:55)
[2022-11-15] MEDS: metFORMIN 500 MG TAB PER TUBE SCH (18:19)
[2022-11-15] MEDS: Atorvastatin Calcium 40 MG TAB PO SCH (20:55)
[2022-11-16] MEDS: Levothyroxine Sodium 25 MCG TAB PO SCH (05:52)
[2022-11-16] MEDS: Ipratropium/Albuterol 3 ML NEB EZPAP SCH ×3 (07:13→19:17)
[2022-11-16] MEDS: Aspirin Chewable 81 MG TAB PO SCH (09:48)
[2022-11-16] MEDS: Acetaminophen 325 MG/10.15 ML UDCUP PER TUBE SCH ×3 (09:48→21:23)
[2022-11-16] MEDS: Polyethylene Glycol 3350 17 GM Packet PO SCH (09:48)
[2022-11-16] MEDS: Venlafaxine HCl 37.5 MG TAB PO SCH ×2 (09:49→21:23)
[2022-11-16] MEDS: Pantoprazole 40 MG GRANULES PACKET PO SCH ×2 (09:49→21:24)
[2022-11-16] MEDS: Senokot S 8.6-50 MG TAB PO SCH ×2 (09:49→21:23)
[2022-11-16] MEDS: Amoxicillin/Potassium Clav 600 mg/5 ml Oral Suspension PO SCH ×2 (09:50→21:23)
[2022-11-16] MEDS: Multivits W-Minerals Liquid 15 ML LIQ PER TUBE SCH (09:50)
[2022-11-16] MEDS ORDERED: Acetaminophen 325 MG/10.15 ML UDCUP PER TUBE SCH (13:30)
[2022-11-16] MEDS: metFORMIN 500 MG TAB PER TUBE SCH (17:14)
[2022-11-16] MEDS: Atorvastatin Calcium 40 MG TAB PO SCH (21:24)
[2022-11-17] MEDS ORDERED: Acetaminophen 325 MG/10.15 ML UDCUP PER TUBE SCH (04:45)
[2022-11-17] MEDS: Levothyroxine Sodium 25 MCG TAB PO SCH (04:59)
[2022-11-17 06:44] LABS: Anion Gap 12 mmol/L (10-20); BUN (Urea Nitrogen) 23 mg/dL (9.8-20.1); Calc. Creatinine Clearance 72 mL/min (70-130); Calcium 9.8 mg/dL (7.8-10.44); Carbon Dioxide 30 mmol/L (23-31); Chloride 98 mmol/L (98-107); Estimated GFR 71; Glucose 190 mg/dL (80-115); Magnesium 1.7 mg/dL (1.6-2.6); Phosphorus 3.8 mg/dL (2.3-4.7); Potassium 4.7 mmol/L (3.5-5.1); Sodium 135 mmol/L (136-145)
[2022-11-17] MEDS: Ipratropium/Albuterol 3 ML NEB EZPAP SCH ×3 (07:01→19:18)
[2022-11-17] MEDS ORDERED: Magnesium 2 GM/50 ML(in water) 2 GM in Premix Bag 1 BAG IVPB SCH (08:00)
[2022-11-17] MEDS: Multivits W-Minerals Liquid 15 ML LIQ PER TUBE SCH (09:55)
[2022-11-17] MEDS: Pantoprazole 40 MG GRANULES PACKET PO SCH ×2 (09:55→20:56)
[2022-11-17] MEDS: Senokot S 8.6-50 MG TAB PO SCH ×2 (09:55→20:56)
[2022-11-17] MEDS: Venlafaxine HCl 37.5 MG TAB PO SCH ×2 (09:55→20:56)
[2022-11-17] MEDS: Aspirin Chewable 81 MG TAB PO SCH (09:55)
[2022-11-17] MEDS: Amoxicillin/Potassium Clav 600 mg/5 ml Oral Suspension PO SCH ×2 (09:56→20:56)
[2022-11-17] MEDS: Polyethylene Glycol 3350 17 GM Packet PO SCH (09:56)
[2022-11-17] MEDS: Acetaminophen 325 MG/10.15 ML UDCUP PER TUBE SCH ×4 (09:56→20:56)
[2022-11-17] MEDS: metFORMIN 500 MG TAB PER TUBE SCH (17:20)
[2022-11-17] MEDS: HumaLOG 300 UNITS/3 ML VIAL SC PRN (18:28)
[2022-11-17] MEDS: Atorvastatin Calcium 40 MG TAB PO SCH (20:56)
[2022-11-18] MEDS: HumaLOG 300 UNITS/3 ML VIAL SC PRN (05:41)
[2022-11-18] MEDS: Levothyroxine Sodium 25 MCG TAB PO SCH (05:42)
[2022-11-18] MEDS: Ipratropium/Albuterol 3 ML NEB EZPAP SCH ×2 (07:31→13:13)
[2022-11-18] MEDS: Multivits W-Minerals Liquid 15 ML LIQ PER TUBE SCH (09:45)
[2022-11-18] MEDS: Aspirin Chewable 81 MG TAB PO SCH (09:45)
[2022-11-18] MEDS: Senokot S 8.6-50 MG TAB PO SCH ×2 (09:45→22:01)
[2022-11-18] MEDS: Amoxicillin/Potassium Clav 600 mg/5 ml Oral Suspension PO SCH (11:17)
[2022-11-18] MEDS: Polyethylene Glycol 3350 17 GM Packet PO SCH (11:27)
[2022-11-18] MEDS: Acetaminophen 325 MG/10.15 ML UDCUP PER TUBE SCH ×4 (11:27→22:02)
[2022-11-18] MEDS: Venlafaxine HCl 37.5 MG TAB PO SCH ×2 (11:28→22:01)
[2022-11-18] MEDS: Pantoprazole 40 MG GRANULES PACKET PO SCH ×2 (11:28→22:02)
[2022-11-18] MEDS ORDERED: Ipratropium/Albuterol 3 ML NEB EZPAP PRN (15:10)
[2022-11-18] MEDS: metFORMIN 500 MG TAB PER TUBE SCH (17:33)
[2022-11-18] MEDS: Atorvastatin Calcium 40 MG TAB PO SCH (22:01)
[2022-11-19] MEDS: Levothyroxine Sodium 25 MCG TAB PO SCH (06:41)
[2022-11-19] MEDS: Polyethylene Glycol 3350 17 GM Packet PO SCH (09:27)
[2022-11-19] MEDS: Multivits W-Minerals Liquid 15 ML LIQ PER TUBE SCH (09:28)
[2022-11-19] MEDS: Pantoprazole 40 MG GRANULES PACKET PO SCH (09:29)
[2022-11-19] MEDS: Venlafaxine HCl 37.5 MG TAB PO SCH (09:29)
[2022-11-19] MEDS: Senokot S 8.6-50 MG TAB PO SCH (09:30)
[2022-11-19] MEDS: Aspirin Chewable 81 MG TAB PO SCH (09:30)
[2022-11-19] MEDS: Acetaminophen 325 MG/10.15 ML UDCUP PER TUBE SCH ×3 (09:33→17:01)
[2022-11-19] MEDS: metFORMIN 500 MG TAB PER TUBE SCH (17:02)
[2022-11-19 18:42] VITALS: BP 114/68; TEMP 97.2
[2022-11-19] MEDS ORDERED: Acetaminophen 650 MG/20.3 ML UDCUP PER TUBE SCH (21:00)
== END 2022-11-19 19:55 | disposition swing bed (61) | DRG 64 ==
LOC: ERS 14:45 → 2SE 17:27 → SURG B 11-14 20:22 → T4-A 11-17 23:49
PROVIDERS: ADMIT Internal Medicine; ATTEND Internal Medicine
PROC: 4A033R1 Measurement of Arterial Saturation, Peripheral, Percutaneous Approach (ICD-10-PCS; 2022-11-03)
PROC: 0DH63UZ Insertion of Feeding Device into Stomach, Percutaneous Approach (ICD-10-PCS; principal; 2022-11-12)
DX: I63.9 Cerebral infarction, unspecified (principal); A41.9 Sepsis, unspecified organism; J96.01 Acute respiratory failure with hypoxia; J69.0 Pneumonitis due to inhalation of food and vomit; R65.20 Severe sepsis without septic shock; G81.94 Hemiplegia, unspecified affecting left nondominant side; E27.40 Unspecified adrenocortical insufficiency; E11.9 Type 2 diabetes mellitus without complications; E03.9 Hypothyroidism, unspecified; E83.39 Other disorders of phosphorus metabolism; R33.9 Retention of urine, unspecified; R04.0 Epistaxis; R31.0 Gross hematuria; R13.12 Dysphagia, oropharyngeal phase; E87.6 Hypokalemia; E83.42 Hypomagnesemia; I48.0 Paroxysmal atrial fibrillation; R53.81 Other malaise; K56.41 Fecal impaction; F39 Unspecified mood [affective] disorder; Z79.01 Long term (current) use of anticoagulants; Z98.890 Other specified postprocedural states; Z85.819 Personal history of malignant neoplasm of unspecified site of lip, oral cavity, and pharynx; Z87.891 Personal history of nicotine dependence; Z86.718 Personal history of other venous thrombosis and embolism; Z88.8 Allergy status to other drugs, medicaments and biological substances; Z79.899 Other long term (current) drug therapy; Z79.890 Hormone replacement therapy; Z82.49 Family history of ischemic heart disease and other diseases of the circulatory system; Z83.3 Family history of diabetes mellitus
CPT/HCPCS: 36415; 36416; 36600; 70450; 70496; 70498; 71045; 74230; 78708; 80048; 80053; 80061; 80202; 81001; 82805; 83036; 83605; 83735; 83880; 84100; 84132; 84439; 84443; 84481; 84484; 85025; 86140; 86713; 87040; 87081; 87449; 87633; 93005; 93010; 93306; 93970; 94640; 95712; 95819; 95957; 96360; 97139; A4641; A9562; C9113; J1200; J1650; J1815; J1885; J1956; J2060; J2185; J2250; J2272; J2405; J2543; J3370; J3370-JW; J3475; J3480; J3490; J7030; J7050; J7620

== ENCOUNTER 2023-05-19 13:50 | Inpatient (IN) | payer OTHER ==
[2023-05-19] MEDS ORDERED: Iopamidol-370 76% 500 ML MDV (1 ML CHARGE) ONE ×2 (13:52→13:55)
[2023-05-19] MEDS ORDERED: Ondansetron PF 4 MG/2 ML Vial ONE (14:46)
[2023-05-19] MEDS ORDERED: fentaNYL 50 mcg/mL 1 mL Vial ONE (15:05)
[2023-05-19 15:26] LABS: #Eosinphils 0.2 thou/uL (0.0-0.7); #Neutrophils 5.6 thou/uL (1.40-6.50); %Basophils 0.4 % (0.0-1.0); %Eosinophils 2.1 % (0.0-10.0); %Lymphocytes 14.1 % (21.0-51.0); %Monocytes 12.7 % (0.0-10.0); %Neutrophils 70.4 % (42.0-75.0); Hematocrit 30.1 % (36.0-47.0); Hemoglobin 9.4 g/dL (12.0-16.0); Mean Corpuscular HGB CONC 31.2 g/dL (32.0-36.0); Mean Corpuscular Hemoglobin 28.1 pg (27.0-31.0); Mean Corpuscular Volume 90.1 fl (78.0-98.0); Mean Platelet Volume 11.4 fL (7.4-10.4); Platelet Count 226 10x3/uL (130-400); RBC Distribution Width 15.3 % (11.5-14.5); Red Blood Cell (RBC) Count 3.34 mill/uL (4.20-5.40); White Blood Cell (WBC) Count 7.9 10x3/uL (4.8-10.8)
[2023-05-19 15:44] LABS: ALT (SGPT) 30 U/L (8-55); AST (SGOT) 26 U/L (5-34); Albumin 3.3 g/dL (3.4-4.8); Alkaline Phosphatase 90 U/L (40-110); Anion Gap 13 mmol/L (10-20); BUN (Urea Nitrogen) 41 mg/dL (9.8-20.1); Bilirubin, Total 0.3 mg/dL (0.2-1.2); Calc. Creatinine Clearance 0 mL/min (70-130); Calcium 9.3 mg/dL (7.8-10.44); Carbon Dioxide 24 mmol/L (23-31); Chloride 106 mmol/L (98-107); Estimated GFR 82; Glucose 201 mg/dL (83-110); Lipase 26 U/L (8-78); Protein, Total 6.3 g/dL (5.8-8.1); Sodium 139 mmol/L (136-145)
[2023-05-19 15:47] LABS: Troponin I Less than 0.010 ng/mL (< 0.028)
[2023-05-19 15:58] LABS: Bacteria/HPF None Seen HPF (None Seen); Bilirubin Negative (Negative); Blood, Urine Negative (Negative); CAUTI Indications for Culture Alt mental st,lethar; Clarity Clear (Clear); Glucose, Urine (Dipstick) Greater than 1000 mg/dL (Negative); Ketone, Urine Negative (Negative); Leukocyte 250 Leu/uL (Negative); Nitrite Negative (Negative); Protein, Urine (Dipstick) Negative (Neg-Trace); RBC/HPF 0-3 HPF (0-3); Squamous Epithelial None Seen HPF (0-3); Urobilinogen Normal mg/dL (Less than 2); pH, Urine 7.5 (5.0-9.0)
[2023-05-19 16:00] LABS: Urine Culture Reflex No No
[2023-05-19 16:11] LABS: Actual Bicarbonate (HCO3v) 24.8 mEq/L (22-28); Base Excess -0.8 mEq/L (-2.0 to +3.0); Chloride (VBG) 105 mmol/L (98-106); Hematocrit-VBG 29 % (36.0-47.0); Hemoglobin (Hb) 9.9 g/dL (11.7-16.1); Potassium (VBG) 3.81 mmol/L (3.70-5.30); Sodium 137 mmol/L (133-146); pH (venous) 7.356 (7.32-7.43)
[2023-05-19] MEDS ORDERED: Glucagon 1 MG/ML KIT IM PRN (19:35)
[2023-05-19] MEDS ORDERED: HumaLOG 300 UNITS/3 ML VIAL SC PRN (19:35)
[2023-05-19] MEDS ORDERED: Dextrose 5% in Water 1,000 ML IV PRN (19:35)
[2023-05-19] MEDS ORDERED: Acetaminophen 650 MG Suppository PR PRN (19:35)
[2023-05-19] MEDS ORDERED: Ondansetron ODT 4 MG TAB PO PRN (19:35)
[2023-05-19] MEDS ORDERED: Dextrose 50% Abboject 50 ML SYRINGE SLOW IVP PRN (19:35)
[2023-05-19] MEDS ORDERED: Metoprolol Tartrate 5 MG (5 mL) VIAL IVP PRN (20:28)
[2023-05-19 21:20] LABS: Phosphorus 3.7 mg/dL (2.3-4.7)
[2023-05-19 21:22] LABS: Troponin I 0.015 ng/mL (< 0.028)
[2023-05-19] MEDS ORDERED: traZODone HCl 50 MG TAB PO PRN (21:38)
[2023-05-19] MEDS ORDERED: Clopidogrel Bisulfate 75 MG TAB ONE (23:10)
[2023-05-19] MEDS ORDERED: traZODone HCl 50 MG TAB ONE (23:10)
[2023-05-19] MEDS ORDERED: Clopidogrel Bisulfate 75 MG TAB PO SCH (23:15)
[2023-05-19] MEDS ORDERED: Atorvastatin Calcium 40 MG TAB PO SCH (23:30)
[2023-05-19 23:52] LABS: Troponin I 0.014 ng/mL (< 0.028)
[2023-05-20 01:37] LABS: Free T4 (Free Thyroxine) Greater than 5.00 ng/dL (0.70-1.48)
[2023-05-20] MEDS ORDERED: Atorvastatin Calcium 40 MG TAB ONE (01:39)
[2023-05-20] MEDS ORDERED: Metoprolol Tartrate 5 MG (5 mL) VIAL ONE ×3 (01:39→11:17)
[2023-05-20] MEDS: Metoprolol Tartrate 5 MG (5 mL) VIAL IVP PRN ×2 (01:55→02:54)
[2023-05-20] MEDS: Sodium Chloride 0.9% 1,000 ML IV SCH ×2 (01:55→10:42)
[2023-05-20] MEDS ORDERED: Ziprasidone 20 MG CAP ONE (02:03)
[2023-05-20 04:02] LABS: #Eosinphils 0.2 thou/uL (0.0-0.7); #Monocytes 1.5 thou/uL (0.11-0.59); #Neutrophils 7.3 thou/uL (1.40-6.50); %Basophils 0.3 % (0.0-1.0); %Lymphocytes 10.7 % (21.0-51.0); %Monocytes 14.7 % (0.0-10.0); Hematocrit 29.8 % (36.0-47.0); Hemoglobin 9.5 g/dL (12.0-16.0); Mean Corpuscular HGB CONC 31.9 g/dL (32.0-36.0); Mean Corpuscular Hemoglobin 27.9 pg (27.0-31.0); Mean Corpuscular Volume 87.6 fl (78.0-98.0); Mean Platelet Volume 11.6 fL (7.4-10.4); Platelet Count 212 10x3/uL (130-400); RBC Distribution Width 15.1 % (11.5-14.5); White Blood Cell (WBC) Count 10.2 10x3/uL (4.8-10.8)
[2023-05-20 05:01] LABS: Anion Gap 15 mmol/L (10-20); BUN (Urea Nitrogen) 33 mg/dL (9.8-20.1); Calc. Creatinine Clearance 78 mL/min (70-130); Calcium 9.3 mg/dL (7.8-10.44); Carbon Dioxide 21 mmol/L (23-31); Chloride 107 mmol/L (98-107); Estimated GFR 84; Glucose 133 mg/dL (83-110); Potassium 4.1 mmol/L (3.5-5.1); Sodium 139 mmol/L (136-145)
[2023-05-20] MEDS ORDERED: Levothyroxine Sodium 25 MCG TAB PO SCH (06:00)
[2023-05-20] MEDS ORDERED: Clopidogrel Bisulfate 75 MG TAB ONE (08:03)
[2023-05-20] MEDS ORDERED: Aspirin Chewable 81 MG TAB ONE (08:04)
[2023-05-20] MEDS ORDERED: Hydrocortisone 10 mg Tablet PER TUBE SCH (08:30)
[2023-05-20] MEDS ORDERED: Bacteriostatic Water 30 ML VIAL FS SCH (08:45)
[2023-05-20] MEDS ORDERED: Piperacillin/Tazobactam 3.375 GM in Sodium Chloride 0.9% 100 ML IVPB SCH (08:45)
[2023-05-20] MEDS ORDERED: Hydrocortisone Sod Succ/PF 500 mg/4 ml Vial SLOW IVP SCH (08:45)
[2023-05-20] MEDS ORDERED: Hydrocortisone Sod Succ/PF 100 mg/2 ml Vial ONE (08:47)
[2023-05-20] MEDS ORDERED: Piperacillin/Tazobactam 3.375 GM VIAL ONE (08:48)
[2023-05-20] MEDS ORDERED: Sodium Chloride 0.9% 100 ML ONE (08:49)
[2023-05-20] MEDS ORDERED: Propranolol 40 MG TAB PO SCH (09:00)
[2023-05-20] MEDS ORDERED: Methimazole 10 MG TAB PO SCH (09:00)
[2023-05-20] MEDS ORDERED: Venlafaxine XR 37.5 MG CAP PO SCH (09:00)
[2023-05-20] MEDS: Aspirin 81 mg Enteric Coated Tablet PO SCH (09:05)
[2023-05-20] MEDS: Clopidogrel Bisulfate 75 MG TAB PO SCH (09:06)
[2023-05-20] MEDS ORDERED: Ondansetron PF 4 MG/2 ML Vial ONE (10:16)
[2023-05-20] MEDS: Propranolol 40 MG TAB PO SCH ×4 (11:34→21:24)
[2023-05-20] MEDS: Methimazole 10 MG TAB PER TUBE SCH ×4 (11:40→21:14)
[2023-05-20] MEDS: Lactated Ringer's 1,000 ML IV SCH ×2 (11:41→17:41)
[2023-05-20 12:12] LABS: Actual Bicarbonate (HCO3a) 19.9 mEq/L (22-28); Analyzer IN Cardio ER; Base Excess (BEa) -3.2 mEq/L (-2.0 to +3.0); CO2 Tension 28.8 mmHg (35.0-45.0); Calcium, Ionized (arterial) 1.25 mmol/L (1.12-1.30); Hematocrit-ABG 26 % (36.0-47.0); Hemoglobin (Hb) 8.8 g/dL (12.0-16.0); Potassium - ABG Lab 4.61 mmol/L (3.70-5.30); pH, Arterial 7.458 (7.35-7.45)
[2023-05-20 12:17] LABS: Puncture Site LRA
[2023-05-20] MEDS: Venlafaxine XR 37.5 MG CAP PO SCH ×2 (14:58→19:38)
[2023-05-20] MEDS: Piperacillin/Tazobactam 3.375 GM in Sodium Chloride 0.9% 100 ML IVPB SCH ×2 (14:58→21:24)
[2023-05-20] MEDS ORDERED: Hydrocortisone 10 mg Tablet PO SCH (16:30)
[2023-05-20] MEDS ORDERED: Propofol 1,000 MG/100 ML VIAL IV ONE (17:01)
[2023-05-20] MEDS ORDERED: Electrolyte Replacement Protocol 1 EACH FS SCH (17:09)
[2023-05-20] MEDS ORDERED: Ventilator Sedation Protocol 1 EACH FS SCH (17:15)
[2023-05-20 17:27] LABS: Actual Bicarbonate (HCO3a) 18.3 mEq/L (22-28); Base Excess (BEa) -6.4 mEq/L (-2.0 to +3.0); CO2 Tension 33.6 mmHg (35.0-45.0); Calcium, Ionized (arterial) 1.33 mmol/L (1.12-1.30); Carboxyhemoglobin (COHb) 0.5 gm% (0.0-3.0); Hematocrit-ABG 33 % (36.0-47.0); Hemoglobin (Hb) 11.2 g/dL (12.0-16.0); O2 Tension (PaO2), arterial 102.2 mmHg (> 70.0); Potassium - ABG Lab 4.35 mmol/L (3.70-5.30); Puncture Site LRA; pH, Arterial 7.354 (7.35-7.45)
[2023-05-20] MEDS ORDERED: Propofol BOLUS 1,000 MG/100 ML VIAL IV PRN (17:30)
[2023-05-20] MEDS ORDERED: Morphine 2 MG/ML VIAL SLOW IVP PRN (17:30)
[2023-05-20] MEDS ORDERED: Fentanyl BOLUS 250 ML IVPB PRN (17:30)
[2023-05-20] MEDS ORDERED: DISCONTINUE PREVIOUS NARCOTIC PAIN MEDICATIONS AND BENZODIAZEPINES FS SCH (17:30)
[2023-05-20] MEDS ORDERED: Fentanyl CADD 100 ML IV SCH (17:30)
[2023-05-20] MEDS: Propofol 1,000 MG/100 ML VIAL IV PRN (17:41)
[2023-05-20] MEDS: Hydrocortisone Sod Succ/PF 100 mg/2 ml Vial IVP SCH (17:51)
[2023-05-20] MEDS: Lorazepam 2 MG/ML VIAL SLOW IVP PRN ×2 (18:09→19:38)
[2023-05-20] MEDS: Ipratropium/Albuterol 3 ML NEB NEB SCH (19:21)
[2023-05-20] MEDS: Atorvastatin Calcium 40 MG TAB PO SCH (19:38)
[2023-05-20] MEDS ORDERED: Atorvastatin Calcium 40 MG TAB PO SCH (21:00)
[2023-05-20] MEDS: HumaLOG 300 UNITS/3 ML VIAL SC PRN (21:14)
[2023-05-21] MEDS: Propranolol 40 MG TAB PO SCH ×3 (00:21→08:17)
[2023-05-21] MEDS: Ipratropium/Albuterol 3 ML NEB NEB SCH ×4 (00:41→19:05)
[2023-05-21] MEDS: Hydrocortisone Sod Succ/PF 100 mg/2 ml Vial IVP SCH ×3 (00:46→16:03)
[2023-05-21] MEDS: Methimazole 10 MG TAB PER TUBE SCH ×6 (00:46→20:22)
[2023-05-21] MEDS: Piperacillin/Tazobactam 3.375 GM in Sodium Chloride 0.9% 100 ML IVPB SCH ×3 (04:32→21:42)
[2023-05-21 04:36] LABS: Hematocrit 30.9 % (36.0-47.0); Manual Diff?? YES; Mean Corpuscular HGB CONC 32.4 g/dL (32.0-36.0); Mean Corpuscular Hemoglobin 28.5 pg (27.0-31.0); Mean Platelet Volume 11.9 fL (7.4-10.4); Platelet Count 237 10x3/uL (130-400); RBC Distribution Width 15.1 % (11.5-14.5); Red Blood Cell (RBC) Count 3.51 mill/uL (4.20-5.40); White Blood Cell (WBC) Count 20.9 10x3/uL (4.8-10.8)
[2023-05-21] MEDS: Propofol 1,000 MG/100 ML VIAL IV PRN ×2 (04:38→17:02)
[2023-05-21] MEDS: HumaLOG 300 UNITS/3 ML VIAL SC PRN ×4 (04:42→20:36)
[2023-05-21 04:43] LABS: Delete Auto Diff?? YES
[2023-05-21 04:59] LABS: Anion Gap 17 mmol/L (10-20); BUN (Urea Nitrogen) 48 mg/dL (9.8-20.1); Calc. Creatinine Clearance 62 mL/min (70-130); Calcium 9.8 mg/dL (7.8-10.44); Carbon Dioxide 21 mmol/L (23-31); Chloride 111 mmol/L (98-107); Estimated GFR 63; Glucose 230 mg/dL (83-110); Potassium 3.8 mmol/L (3.5-5.1); Sodium 145 mmol/L (136-145)
[2023-05-21 05:06] LABS: Band 28 % (5-11); CellaVision Operator ID LAB.CLH1; Hypochromia SLIGHT = 6-15 cells HPF (0-5); Lymphocytes 3 % (21-51); Metamyelocyte 1 % (0-0); Monocytes 4 % (0-10); Neutrophil 64 % (42-75); Platelet Adequacy Comment Platelets Normal; Polychromasia SLIGHT = 2-3 cells HPF (0-2); Target Cells SLIGHT = 2-5 cells HPF (0-1); Total Cell Count 102
[2023-05-21 05:19] LABS: Thyroid Stimulating Hormone 0.0028 uIU/mL (0.35-4.94)
[2023-05-21 05:30] LABS: Free T4 (Free Thyroxine) Greater than 5.00 ng/dL (0.70-1.48)
[2023-05-21 07:54] LABS: Actual Bicarbonate (HCO3a) 21.6 mEq/L (22-28); Calcium, Ionized (arterial) 1.34 mmol/L (1.12-1.30); Carboxyhemoglobin (COHb) 0.5 gm% (0.0-3.0); Hematocrit-ABG 32 % (36.0-47.0); Hemoglobin (Hb) 10.9 g/dL (12.0-16.0); O2 Tension (PaO2), arterial 147.7 mmHg (> 70.0); Potassium - ABG Lab 3.61 mmol/L (3.70-5.30); pH, Arterial 7.434 (7.35-7.45)
[2023-05-21 07:58] LABS: Puncture Site RRA
[2023-05-21] MEDS: Venlafaxine XR 37.5 MG CAP PO SCH ×2 (08:17→20:07)
[2023-05-21] MEDS: Aspirin 81 mg Enteric Coated Tablet PO SCH (08:17)
[2023-05-21] MEDS: Clopidogrel Bisulfate 75 MG TAB PO SCH (08:18)
[2023-05-21] MEDS ORDERED: Esmolol 2,500 MG/250 ML 250 ML IVPB SCH (09:00)
[2023-05-21] MEDS: Esmolol 2,500 MG/250 ML 250 ML IVPB SCH ×4 (09:38→23:47)
[2023-05-21] MEDS: Lactated Ringer's 1,000 ML IV SCH (13:06)
[2023-05-21] MEDS: Atorvastatin Calcium 40 MG TAB PO SCH (20:07)
[2023-05-22] MEDS: Ipratropium/Albuterol 3 ML NEB NEB SCH ×4 (01:06→18:41)
[2023-05-22] MEDS: Methimazole 10 MG TAB PER TUBE SCH ×6 (01:35→21:30)
[2023-05-22] MEDS: Hydrocortisone Sod Succ/PF 100 mg/2 ml Vial IVP SCH ×3 (01:35→17:12)
[2023-05-22] MEDS: Lactated Ringer's 1,000 ML IV SCH (02:32)
[2023-05-22] MEDS: Propofol 1,000 MG/100 ML VIAL IV PRN ×2 (03:27→17:12)
[2023-05-22] MEDS: Esmolol 2,500 MG/250 ML 250 ML IVPB SCH ×3 (03:29→20:51)
[2023-05-22 04:42] LABS: #Monocytes 1.7 thou/uL (0.11-0.59); %Basophils 0.1 % (0.0-1.0); %Lymphocytes 3.4 % (21.0-51.0); %Monocytes 8.1 % (0.0-10.0); %Neutrophils 87.6 % (42.0-75.0); Hematocrit 29.2 % (36.0-47.0); Hemoglobin 9.3 g/dL (12.0-16.0); Mean Corpuscular HGB CONC 31.8 g/dL (32.0-36.0); Mean Corpuscular Hemoglobin 28.2 pg (27.0-31.0); Mean Corpuscular Volume 88.5 fl (78.0-98.0); Mean Platelet Volume 12.1 fL (7.4-10.4); Platelet Count 212 10x3/uL (130-400); White Blood Cell (WBC) Count 20.6 10x3/uL (4.8-10.8)
[2023-05-22 04:56] LABS: Anion Gap 13 mmol/L (10-20); BUN (Urea Nitrogen) 51 mg/dL (9.8-20.1); Calc. Creatinine Clearance 64 mL/min (70-130); Calcium 9.5 mg/dL (7.8-10.44); Carbon Dioxide 23 mmol/L (23-31); Chloride 116 mmol/L (98-107); Estimated GFR 67; Glucose 327 mg/dL (83-110); Potassium 4.2 mmol/L (3.5-5.1); Sodium 148 mmol/L (136-145)
[2023-05-22] MEDS: Piperacillin/Tazobactam 3.375 GM in Sodium Chloride 0.9% 100 ML IVPB SCH ×3 (05:05→21:31)
[2023-05-22 05:18] LABS: Free T4 (Free Thyroxine) 3.41 ng/dL (0.70-1.48)
[2023-05-22] MEDS: HumaLOG 300 UNITS/3 ML VIAL SC PRN ×4 (06:17→21:36)
[2023-05-22 07:34] LABS: Actual Bicarbonate (HCO3a) 22.1 mEq/L (22-28); Calcium, Ionized (arterial) 1.34 mmol/L (1.12-1.30); Carboxyhemoglobin (COHb) 0.3 gm% (0.0-3.0); Hematocrit-ABG 28 % (36.0-47.0); Hemoglobin (Hb) 9.6 g/dL (12.0-16.0); O2 Tension (PaO2), arterial 153.6 mmHg (> 70.0); Potassium - ABG Lab 4.12 mmol/L (3.70-5.30); Puncture Site RBA; pH, Arterial 7.471 (7.35-7.45)
[2023-05-22] MEDS: Clopidogrel Bisulfate 75 MG TAB PO SCH (08:57)
[2023-05-22] MEDS: Venlafaxine XR 37.5 MG CAP PO SCH ×2 (08:57→21:31)
[2023-05-22] MEDS: Aspirin 81 mg Enteric Coated Tablet PO SCH (08:57)
[2023-05-22] MEDS: Sodium Chloride 0.45% 1,000 ML IV SCH ×2 (10:51→20:51)
[2023-05-22] MEDS ORDERED: Metoprolol Tartrate 25 MG TAB PER TUBE SCH ×2 (11:00→21:00)
[2023-05-22] MEDS: Atorvastatin Calcium 40 MG TAB PO SCH (21:27)
[2023-05-23] MEDS: Ipratropium/Albuterol 3 ML NEB NEB SCH ×5 (00:54→23:34)
[2023-05-23] MEDS: Methimazole 10 MG TAB PER TUBE SCH ×6 (01:23→21:12)
[2023-05-23] MEDS: Hydrocortisone Sod Succ/PF 100 mg/2 ml Vial IVP SCH ×3 (01:23→16:21)
[2023-05-23] MEDS: Esmolol 2,500 MG/250 ML 250 ML IVPB SCH ×2 (01:40→08:06)
[2023-05-23] MEDS: HumaLOG 300 UNITS/3 ML VIAL SC PRN ×4 (04:41→21:15)
[2023-05-23] MEDS: Propofol 1,000 MG/100 ML VIAL IV PRN ×2 (04:56→14:21)
[2023-05-23] MEDS: Piperacillin/Tazobactam 3.375 GM in Sodium Chloride 0.9% 100 ML IVPB SCH ×3 (05:08→21:14)
[2023-05-23] MEDS: Sodium Chloride 0.45% 1,000 ML IV SCH ×2 (06:01→16:03)
[2023-05-23 07:32] LABS: Actual Bicarbonate (HCO3a) 21.2 mEq/L (22-28); Base Excess (BEa) -2.3 mEq/L (-2.0 to +3.0); Calcium, Ionized (arterial) 1.35 mmol/L (1.12-1.30); Carboxyhemoglobin (COHb) 0.3 gm% (0.0-3.0); Hematocrit-ABG 28 % (36.0-47.0); Hemoglobin (Hb) 9.6 g/dL (12.0-16.0); O2 Tension (PaO2), arterial 149.6 mmHg (> 70.0); Potassium - ABG Lab 4.01 mmol/L (3.70-5.30)
[2023-05-23 07:36] LABS: Puncture Site RBA
[2023-05-23] MEDS ORDERED: Lactated Ringer's 1,000 ML IV SCH (08:30)
[2023-05-23] MEDS ORDERED: Sodium Chloride 0.9% (PF) 10 ML VIAL FS PRN (08:45)
[2023-05-23] MEDS ORDERED: HumuLIN 70/30 100 Unit/ml 10 ml Vial SC SCH (09:00)
[2023-05-23] MEDS ORDERED: Enoxaparin 40 MG (0.4 mL) SYRINGE SC SCH (09:15)
[2023-05-23] MEDS: Venlafaxine HCl 37.5 MG TAB PO SCH ×2 (09:20→21:13)
[2023-05-23] MEDS: Pantoprazole 40 MG VIAL IVP SCH (09:21)
[2023-05-23] MEDS: Clopidogrel Bisulfate 75 MG TAB PO SCH (09:21)
[2023-05-23] MEDS: Metoprolol Tartrate 25 MG TAB PER TUBE SCH ×2 (09:21→21:13)
[2023-05-23] MEDS: Aspirin 81 mg Enteric Coated Tablet PO SCH (09:21)
[2023-05-23] MEDS: HumuLIN 70/30 100 Unit/ml 10 ml Vial SC SCH ×2 (09:38→16:33)
[2023-05-23 11:34] LABS: #Monocytes 0.7 thou/uL (0.11-0.59); %Basophils 0.1 % (0.0-1.0); %Lymphocytes 4.6 % (21.0-51.0); %Monocytes 4.9 % (0.0-10.0); %Neutrophils 89.8 % (42.0-75.0); Hematocrit 30.5 % (36.0-47.0); Hemoglobin 9.2 g/dL (12.0-16.0); Mean Corpuscular HGB CONC 30.2 g/dL (32.0-36.0); Mean Corpuscular Hemoglobin 27.6 pg (27.0-31.0); Mean Corpuscular Volume 91.6 fl (78.0-98.0); Mean Platelet Volume 11.9 fL (7.4-10.4); Platelet Count 169 10x3/uL (130-400); Red Blood Cell (RBC) Count 3.33 mill/uL (4.20-5.40); White Blood Cell (WBC) Count 14.5 10x3/uL (4.8-10.8)
[2023-05-23 11:56] LABS: Anion Gap 10 mmol/L (10-20); BUN (Urea Nitrogen) 49 mg/dL (9.8-20.1); Calc. Creatinine Clearance 75 mL/min (70-130); Calcium 9.1 mg/dL (7.8-10.44); Carbon Dioxide 20 mmol/L (23-31); Chloride 119 mmol/L (98-107); Estimated GFR 76; Glucose 354 mg/dL (83-110); Potassium 3.9 mmol/L (3.5-5.1); Sodium 145 mmol/L (136-145)
[2023-05-23 12:16] LABS: Free T4 (Free Thyroxine) 2.73 ng/dL (0.70-1.48)
[2023-05-23] MEDS: Atorvastatin Calcium 40 MG TAB PO SCH (21:12)
[2023-05-24] MEDS: Hydrocortisone Sod Succ/PF 100 mg/2 ml Vial IVP SCH ×3 (00:47→16:54)
[2023-05-24] MEDS: Propofol 1,000 MG/100 ML VIAL IV PRN (00:47)
[2023-05-24] MEDS: Methimazole 10 MG TAB PER TUBE SCH ×6 (00:47→22:00)
[2023-05-24] MEDS: Sodium Chloride 0.45% 1,000 ML IV SCH ×3 (01:02→23:00)
[2023-05-24] MEDS: HumuLIN 70/30 100 Unit/ml 10 ml Vial SC SCH ×3 (01:03→16:55)
[2023-05-24 04:17] LABS: #Neutrophils 12.2 thou/uL (1.40-6.50); %Basophils 0.1 % (0.0-1.0); %Lymphocytes 5.4 % (21.0-51.0); %Monocytes 7.4 % (0.0-10.0); %Neutrophils 86.6 % (42.0-75.0); Hematocrit 31.2 % (36.0-47.0); Hemoglobin 9.6 g/dL (12.0-16.0); Mean Corpuscular HGB CONC 30.8 g/dL (32.0-36.0); Mean Corpuscular Hemoglobin 27.3 pg (27.0-31.0); Mean Platelet Volume 11.8 fL (7.4-10.4); Platelet Count 176 10x3/uL (130-400); Red Blood Cell (RBC) Count 3.52 mill/uL (4.20-5.40); White Blood Cell (WBC) Count 14.1 10x3/uL (4.8-10.8)
[2023-05-24 04:33] LABS: Mean Corpuscular Volume 88.6 fl (78.0-98.0)
[2023-05-24 04:45] LABS: Anion Gap 13 mmol/L (10-20); BUN (Urea Nitrogen) 45 mg/dL (9.8-20.1); Calc. Creatinine Clearance 86 mL/min (70-130); Calcium 8.9 mg/dL (7.8-10.44); Carbon Dioxide 21 mmol/L (23-31); Chloride 117 mmol/L (98-107); Estimated GFR 89; Glucose 210 mg/dL (83-110); Potassium 3.8 mmol/L (3.5-5.1); Sodium 147 mmol/L (136-145)
[2023-05-24] MEDS: HumaLOG 300 UNITS/3 ML VIAL SC PRN ×3 (04:59→23:24)
[2023-05-24] MEDS: Piperacillin/Tazobactam 3.375 GM in Sodium Chloride 0.9% 100 ML IVPB SCH ×3 (05:00→22:07)
[2023-05-24 05:27] LABS: Free T4 (Free Thyroxine) 2.78 ng/dL (0.70-1.48)
[2023-05-24] MEDS: Ipratropium/Albuterol 3 ML NEB NEB SCH ×4 (07:11→23:44)
[2023-05-24 07:48] LABS: Actual Bicarbonate (HCO3a) 21.6 mEq/L (22-28); Base Excess (BEa) -2.3 mEq/L (-2.0 to +3.0); CO2 Tension 33.8 mmHg (35.0-45.0); Calcium, Ionized (arterial) 1.31 mmol/L (1.12-1.30); Carboxyhemoglobin (COHb) 0.3 gm% (0.0-3.0); Hematocrit-ABG 30 % (36.0-47.0); Hemoglobin (Hb) 10.2 g/dL (12.0-16.0); O2 Tension (PaO2), arterial 139.5 mmHg (> 70.0); Potassium - ABG Lab 3.59 mmol/L (3.70-5.30); pH, Arterial 7.424 (7.35-7.45)
[2023-05-24 07:52] LABS: Puncture Site LRA
[2023-05-24] MEDS: Clopidogrel Bisulfate 75 MG TAB PO SCH (08:07)
[2023-05-24] MEDS: Enoxaparin 40 MG (0.4 mL) SYRINGE SC SCH (08:07)
[2023-05-24] MEDS: Metoprolol Tartrate 25 MG TAB PER TUBE SCH ×2 (08:07→22:00)
[2023-05-24] MEDS: Aspirin 81 mg Enteric Coated Tablet PO SCH (08:07)
[2023-05-24] MEDS: Pantoprazole 40 MG VIAL IVP SCH (08:08)
[2023-05-24] MEDS: Venlafaxine HCl 37.5 MG TAB PO SCH ×2 (09:41→22:00)
[2023-05-24] MEDS: Dexmedetomidine 400 MCG, Admixture Fee 1 EACH in Sodium Chloride 0.9% 96 ML IVPB SCH (12:12)
[2023-05-24] MEDS: Scopolamine 1 mg/72 hour Patch TOP SCH (13:10)
[2023-05-24] MEDS: Esmolol 2,500 MG/250 ML 250 ML IVPB SCH (16:56)
[2023-05-24] MEDS ORDERED: Metoprolol Tartrate 5 MG (5 mL) VIAL ONE (17:02)
[2023-05-24] MEDS ORDERED: Metoprolol Tartrate 5 MG (5 mL) VIAL IVP SCH (17:15)
[2023-05-24] MEDS: Atorvastatin Calcium 40 MG TAB PO SCH (22:00)
[2023-05-25] MEDS: Methimazole 10 MG TAB PER TUBE SCH ×5 (01:06→22:10)
[2023-05-25] MEDS: Hydrocortisone Sod Succ/PF 100 mg/2 ml Vial IVP SCH ×3 (01:08→16:08)
[2023-05-25] MEDS: HumuLIN 70/30 100 Unit/ml 10 ml Vial SC SCH ×3 (01:12→16:12)
[2023-05-25 04:48] LABS: #Monocytes 1.5 thou/uL (0.11-0.59); #Neutrophils 19.1 thou/uL (1.40-6.50); %Basophils 0.1 % (0.0-1.0); %Lymphocytes 3.7 % (21.0-51.0); %Monocytes 7.2 % (0.0-10.0); %Neutrophils 88.7 % (42.0-75.0); Hematocrit 30.9 % (36.0-47.0); Hemoglobin 9.7 g/dL (12.0-16.0); Mean Corpuscular HGB CONC 31.4 g/dL (32.0-36.0); Mean Corpuscular Hemoglobin 27.6 pg (27.0-31.0); Mean Platelet Volume 12.4 fL (7.4-10.4); Platelet Count 179 10x3/uL (130-400); RBC Distribution Width 14.7 % (11.5-14.5); Red Blood Cell (RBC) Count 3.51 mill/uL (4.20-5.40); White Blood Cell (WBC) Count 21.5 10x3/uL (4.8-10.8)
[2023-05-25 05:24] LABS: Anion Gap 13 mmol/L (10-20); BUN (Urea Nitrogen) 36 mg/dL (9.8-20.1); Calc. Creatinine Clearance 94 mL/min (70-130); Calcium 9.1 mg/dL (7.8-10.44); Carbon Dioxide 21 mmol/L (23-31); Chloride 117 mmol/L (98-107); Estimated GFR 93; Glucose 157 mg/dL (83-110); Potassium 3.4 mmol/L (3.5-5.1); Sodium 148 mmol/L (136-145)
[2023-05-25 05:33] LABS: Free T4 (Free Thyroxine) 2.99 ng/dL (0.70-1.48)
[2023-05-25] MEDS: Aspirin 81 mg Enteric Coated Tablet PO SCH (07:59)
[2023-05-25] MEDS: Enoxaparin 40 MG (0.4 mL) SYRINGE SC SCH (07:59)
[2023-05-25] MEDS: Metoprolol Tartrate 25 MG TAB PER TUBE SCH ×2 (08:00→22:11)
[2023-05-25] MEDS: Venlafaxine HCl 37.5 MG TAB PO SCH ×2 (08:00→22:10)
[2023-05-25] MEDS ORDERED: Potassium Bicarbonate/Cit Ac 20 MEQ TAB PER TUBE SCH (08:00)
[2023-05-25] MEDS: Pantoprazole 40 MG VIAL IVP SCH (08:00)
[2023-05-25] MEDS: Clopidogrel Bisulfate 75 MG TAB PO SCH (08:00)
[2023-05-25] MEDS: Dexmedetomidine 400 MCG, Admixture Fee 1 EACH in Sodium Chloride 0.9% 96 ML IVPB SCH (08:01)
[2023-05-25] MEDS: Sodium Chloride 0.45% 1,000 ML IV SCH ×4 (08:07→22:14)
[2023-05-25] MEDS: Piperacillin/Tazobactam 3.375 GM in Sodium Chloride 0.9% 100 ML IVPB SCH ×3 (12:50→22:08)
[2023-05-25] MEDS: Ipratropium/Albuterol 3 ML NEB NEB SCH ×3 (13:08→22:20)
[2023-05-25 14:30] LABS: Potassium 3.8 mmol/L (3.5-5.1)
[2023-05-25] MEDS: HumaLOG 300 UNITS/3 ML VIAL SC PRN (18:48)
[2023-05-25] MEDS: Atorvastatin Calcium 40 MG TAB PO SCH (22:11)
[2023-05-26] MEDS: HumuLIN 70/30 100 Unit/ml 10 ml Vial SC SCH ×3 (01:30→20:00)
[2023-05-26] MEDS: Methimazole 10 MG TAB PER TUBE SCH ×6 (01:30→21:06)
[2023-05-26] MEDS: Hydrocortisone Sod Succ/PF 100 mg/2 ml Vial IVP SCH ×2 (01:30→13:53)
[2023-05-26 05:12] LABS: #Monocytes 1.6 thou/uL (0.11-0.59); #Neutrophils 18.5 thou/uL (1.40-6.50); %Eosinophils 0.1 % (0.0-10.0); %Lymphocytes 4.4 % (21.0-51.0); %Monocytes 7.4 % (0.0-10.0); %Neutrophils 87.3 % (42.0-75.0); Hematocrit 30.3 % (36.0-47.0); Hemoglobin 9.6 g/dL (12.0-16.0); Mean Corpuscular HGB CONC 31.7 g/dL (32.0-36.0); Mean Corpuscular Volume 88.3 fl (78.0-98.0); Mean Platelet Volume 12.1 fL (7.4-10.4); Platelet Count 192 10x3/uL (130-400); RBC Distribution Width 14.9 % (11.5-14.5); Red Blood Cell (RBC) Count 3.43 mill/uL (4.20-5.40); White Blood Cell (WBC) Count 21.2 10x3/uL (4.8-10.8)
[2023-05-26 05:35] LABS: Anion Gap 12 mmol/L (10-20); BUN (Urea Nitrogen) 32 mg/dL (9.8-20.1); Calc. Creatinine Clearance 106 mL/min (70-130); Calcium 8.8 mg/dL (7.8-10.44); Carbon Dioxide 20 mmol/L (23-31); Chloride 118 mmol/L (98-107); Estimated GFR 95; Glucose 144 mg/dL (83-110); Potassium 3.3 mmol/L (3.5-5.1); Sodium 147 mmol/L (136-145)
[2023-05-26] MEDS: Piperacillin/Tazobactam 3.375 GM in Sodium Chloride 0.9% 100 ML IVPB SCH ×3 (05:50→21:06)
[2023-05-26 05:56] LABS: Free T4 (Free Thyroxine) 3.34 ng/dL (0.70-1.48)
[2023-05-26] MEDS: Ipratropium/Albuterol 3 ML NEB NEB SCH ×2 (07:10→18:19)
[2023-05-26] MEDS ORDERED: Potassium Bicarbonate/Cit Ac 20 MEQ TAB PER TUBE SCH (08:15)
[2023-05-26] MEDS: Venlafaxine HCl 37.5 MG TAB PO SCH ×2 (09:36→21:01)
[2023-05-26] MEDS: Aspirin 81 mg Enteric Coated Tablet PO SCH ×2 (09:36→10:47)
[2023-05-26] MEDS: Enoxaparin 40 MG (0.4 mL) SYRINGE SC SCH (09:36)
[2023-05-26] MEDS: Clopidogrel Bisulfate 75 MG TAB PO SCH (09:36)
[2023-05-26] MEDS: Metoprolol Tartrate 25 MG TAB PER TUBE SCH ×2 (09:37→21:02)
[2023-05-26] MEDS: Pantoprazole 40 MG VIAL IVP SCH (09:37)
[2023-05-26] MEDS ORDERED: Aspirin Chewable 81 MG TAB PO SCH (09:45)
[2023-05-26] MEDS: Atorvastatin Calcium 40 MG TAB PO SCH (21:02)
[2023-05-26] MEDS: traZODone HCl 50 MG TAB PER TUBE PRN (21:16)
[2023-05-27] MEDS: Ipratropium/Albuterol 3 ML NEB NEB SCH ×5 (00:23→18:33)
[2023-05-27] MEDS: Methimazole 10 MG TAB PER TUBE SCH ×6 (01:03→20:53)
[2023-05-27] MEDS: Hydrocortisone Sod Succ/PF 100 mg/2 ml Vial IVP SCH ×2 (01:03→12:44)
[2023-05-27] MEDS: HumuLIN 70/30 100 Unit/ml 10 ml Vial SC SCH (01:06)
[2023-05-27 05:32] LABS: #Eosinphils 0.1 thou/uL (0.0-0.7); #Monocytes 1.2 thou/uL (0.11-0.59); #Neutrophils 17.3 thou/uL (1.40-6.50); %Basophils 0.1 % (0.0-1.0); %Eosinophils 0.6 % (0.0-10.0); %Lymphocytes 5.5 % (21.0-51.0); %Monocytes 5.9 % (0.0-10.0); %Neutrophils 86.9 % (42.0-75.0); Hematocrit 31.3 % (36.0-47.0); Mean Corpuscular HGB CONC 31.9 g/dL (32.0-36.0); Mean Corpuscular Hemoglobin 27.9 pg (27.0-31.0); Mean Corpuscular Volume 87.4 fl (78.0-98.0); Platelet Count 213 10x3/uL (130-400); Red Blood Cell (RBC) Count 3.58 mill/uL (4.20-5.40); White Blood Cell (WBC) Count 19.9 10x3/uL (4.8-10.8)
[2023-05-27 05:35] LABS: Hemoglobin A1c 7.1 % (4.0-6.0)
[2023-05-27] MEDS: Piperacillin/Tazobactam 3.375 GM in Sodium Chloride 0.9% 100 ML IVPB SCH (06:01)
[2023-05-27 06:28] LABS: Anion Gap 9 mmol/L (10-20); BUN (Urea Nitrogen) 29 mg/dL (9.8-20.1); Calc. Creatinine Clearance 115 mL/min (70-130); Calcium 8.7 mg/dL (7.8-10.44); Carbon Dioxide 26 mmol/L (23-31); Chloride 116 mmol/L (98-107); Estimated GFR 97; Glucose 109 mg/dL (83-110); Potassium 3.6 mmol/L (3.5-5.1); Sodium 147 mmol/L (136-145)
[2023-05-27] MEDS: Ondansetron PF 4 MG/2 ML Vial IVP PRN ×2 (09:51→23:52)
[2023-05-27] MEDS: Enoxaparin 40 MG (0.4 mL) SYRINGE SC SCH (09:51)
[2023-05-27] MEDS: Metoprolol Tartrate 25 MG TAB PER TUBE SCH ×2 (09:51→20:53)
[2023-05-27] MEDS: Clopidogrel Bisulfate 75 MG TAB PO SCH (09:51)
[2023-05-27] MEDS: Pantoprazole 40 MG VIAL IVP SCH (09:51)
[2023-05-27] MEDS: Aspirin Chewable 81 MG TAB PO SCH (09:52)
[2023-05-27] MEDS: Venlafaxine HCl 37.5 MG TAB PO SCH ×2 (09:52→20:54)
[2023-05-27] MEDS: Scopolamine 1 mg/72 hour Patch TOP SCH (12:44)
[2023-05-27] MEDS: Atorvastatin Calcium 40 MG TAB PO SCH (20:53)
[2023-05-27] MEDS: traZODone HCl 50 MG TAB PER TUBE PRN (20:53)
[2023-05-28] MEDS: Ipratropium/Albuterol 3 ML NEB NEB SCH ×5 (00:54→23:07)
[2023-05-28] MEDS ORDERED: Metoclopramide HCl 10 MG (2 mL) VIAL IVP SCH (01:00)
[2023-05-28 01:19] LABS: Actual Bicarbonate (HCO3a) 25.2 mEq/L (22-28); Base Excess (BEa) -0.5 mEq/L (-2.0 to +3.0); CO2 Tension 45.9 mmHg (35.0-45.0); Calcium, Ionized (arterial) 1.29 mmol/L (1.12-1.30); Carboxyhemoglobin (COHb) 0.7 gm% (0.0-3.0); Hematocrit-ABG 34 % (36.0-47.0); Hemoglobin (Hb) 11.7 g/dL (12.0-16.0); O2 Tension (PaO2), arterial 129.1 mmHg (> 70.0); Potassium - ABG Lab 3.41 mmol/L (3.70-5.30); pH, Arterial 7.358 (7.35-7.45)
[2023-05-28] MEDS ORDERED: Furosemide 40 MG (4 mL) VIAL SLOW IVP SCH (01:30)
[2023-05-28 01:50] LABS: ALV-art Gradient 13.165 mmHg (0-20); Puncture Site LR
[2023-05-28] MEDS ORDERED: GLYCOPYRROLATE/PF 0.2 MG/ML VIAL SLOW IVP SCH (02:00)
[2023-05-28] MEDS ORDERED: diphenhydrAMINE 50 MG/ML VIAL IVP SCH (02:45)
[2023-05-28] MEDS: Hydrocortisone Sod Succ/PF 100 mg/2 ml Vial IVP SCH ×2 (03:00→14:08)
[2023-05-28] MEDS: Methimazole 10 MG TAB PER TUBE SCH ×6 (03:12→20:51)
[2023-05-28 04:13] LABS: #Basophils 0.1 thou/uL (0.0-0.2); #Eosinphils 0.3 thou/uL (0.0-0.7); #Monocytes 1.4 thou/uL (0.11-0.59); %Basophils 0.3 % (0.0-1.0); %Eosinophils 1.3 % (0.0-10.0); %Lymphocytes 8.5 % (21.0-51.0); %Monocytes 6.6 % (0.0-10.0); %Neutrophils 81.9 % (42.0-75.0); Hematocrit 37.5 % (36.0-47.0); Hemoglobin 11.4 g/dL (12.0-16.0); Mean Corpuscular HGB CONC 30.4 g/dL (32.0-36.0); Mean Corpuscular Hemoglobin 27.5 pg (27.0-31.0); Mean Platelet Volume 11.3 fL (7.4-10.4); Platelet Count 298 10x3/uL (130-400); RBC Distribution Width 15.1 % (11.5-14.5); Red Blood Cell (RBC) Count 4.15 mill/uL (4.20-5.40); White Blood Cell (WBC) Count 20.7 10x3/uL (4.8-10.8)
[2023-05-28 04:33] LABS: Anion Gap 15 mmol/L (10-20); BUN (Urea Nitrogen) 26 mg/dL (9.8-20.1); Calc. Creatinine Clearance 102 mL/min (70-130); Calcium 8.9 mg/dL (7.8-10.44); Carbon Dioxide 22 mmol/L (23-31); Chloride 112 mmol/L (98-107); Estimated GFR 94; Glucose 204 mg/dL (83-110); Potassium 3.5 mmol/L (3.5-5.1); Sodium 145 mmol/L (136-145)
[2023-05-28 04:53] LABS: Free T4 (Free Thyroxine) 2.55 ng/dL (0.70-1.48)
[2023-05-28 05:01] LABS: Mean Corpuscular Volume 90.4 fl (78.0-98.0)
[2023-05-28 05:04] LABS: Thyroid Stimulating Hormone Less than 0.0025 uIU/mL (0.35-4.94)
[2023-05-28] MEDS: Metoprolol Tartrate 25 MG TAB PER TUBE SCH ×2 (09:20→20:51)
[2023-05-28] MEDS: Clopidogrel Bisulfate 75 MG TAB PO SCH (09:20)
[2023-05-28] MEDS: Enoxaparin 40 MG (0.4 mL) SYRINGE SC SCH (09:21)
[2023-05-28] MEDS: Pantoprazole 40 MG VIAL IVP SCH (09:21)
[2023-05-28] MEDS: Venlafaxine HCl 37.5 MG TAB PO SCH ×2 (09:21→20:52)
[2023-05-28] MEDS: Aspirin Chewable 81 MG TAB PO SCH (09:21)
[2023-05-28] MEDS: HumaLOG 300 UNITS/3 ML VIAL SC PRN ×2 (12:23→21:09)
[2023-05-28] MEDS: Atorvastatin Calcium 40 MG TAB PO SCH (20:51)
[2023-05-28] MEDS: traZODone HCl 50 MG TAB PER TUBE PRN (21:08)
[2023-05-29] MEDS: Methimazole 10 MG TAB PER TUBE SCH ×6 (00:27→21:24)
[2023-05-29] MEDS: Hydrocortisone Sod Succ/PF 100 mg/2 ml Vial IVP SCH ×2 (00:27→15:03)
[2023-05-29 05:44] LABS: Anion Gap 12 mmol/L (10-20); BUN (Urea Nitrogen) 18 mg/dL (9.8-20.1); Calc. Creatinine Clearance 121 mL/min (70-130); Calcium 8.5 mg/dL (7.8-10.44); Carbon Dioxide 26 mmol/L (23-31); Chloride 108 mmol/L (98-107); Estimated GFR 98; Glucose 150 mg/dL (83-110); Sodium 143 mmol/L (136-145)
[2023-05-29] MEDS: Ipratropium/Albuterol 3 ML NEB NEB SCH ×3 (06:40→19:00)
[2023-05-29] MEDS: Potassium Chloride 20 MEQ in Premix 1 BAG IVPB SCH ×2 (08:11→10:52)
[2023-05-29] MEDS ORDERED: Potassium Chloride 20 MEQ TAB PO SCH (08:45)
[2023-05-29] MEDS ORDERED: Potassium Bicarbonate/Cit Ac 20 MEQ TAB PO SCH (09:00)
[2023-05-29] MEDS: Venlafaxine HCl 37.5 MG TAB PO SCH ×2 (10:33→21:25)
[2023-05-29] MEDS: Metoprolol Tartrate 25 MG TAB PER TUBE SCH ×2 (10:35→21:25)
[2023-05-29] MEDS: Enoxaparin 40 MG (0.4 mL) SYRINGE SC SCH (10:35)
[2023-05-29] MEDS: Clopidogrel Bisulfate 75 MG TAB PO SCH (10:35)
[2023-05-29] MEDS: Aspirin Chewable 81 MG TAB PO SCH (10:36)
[2023-05-29] MEDS: Pantoprazole 40 MG VIAL IVP SCH (10:53)
[2023-05-29] MEDS ORDERED: Polyethylene Glycol 3350 17 GM Packet PER TUBE PRN (11:31)
[2023-05-29] MEDS ORDERED: Polyethylene Glycol 3350 17 GM Packet PER TUBE SCH (11:45)
[2023-05-29] MEDS: Atorvastatin Calcium 40 MG TAB PO SCH (21:24)
[2023-05-29] MEDS: traZODone HCl 50 MG TAB PER TUBE PRN (21:29)
[2023-05-30] MEDS: Hydrocortisone Sod Succ/PF 100 mg/2 ml Vial IVP SCH (01:29)
[2023-05-30] MEDS: Methimazole 10 MG TAB PER TUBE SCH ×5 (01:30→18:50)
[2023-05-30] MEDS: Ipratropium/Albuterol 3 ML NEB NEB SCH ×4 (02:01→19:20)
[2023-05-30 07:10] LABS: Anion Gap 12 mmol/L (10-20); BUN (Urea Nitrogen) 13 mg/dL (9.8-20.1); Calc. Creatinine Clearance 97 mL/min (70-130); Calcium 8.8 mg/dL (7.8-10.44); Carbon Dioxide 29 mmol/L (23-31); Chloride 107 mmol/L (98-107); Estimated GFR 94; Glucose 155 mg/dL (83-110); Potassium 2.7 mmol/L (3.5-5.1); Sodium 145 mmol/L (136-145)
[2023-05-30 07:27] LABS: Free T4 (Free Thyroxine) 1.71 ng/dL (0.70-1.48); Thyroid Stimulating Hormone Less than 0.0025 uIU/mL (0.35-4.94)
[2023-05-30] MEDS ORDERED: Potassium Bicarbonate/Cit Ac 20 MEQ TAB PO SCH (08:00)
[2023-05-30 08:16] LABS: Magnesium 1.6 mg/dL (1.6-2.6)
[2023-05-30] MEDS: Potassium Chloride 20 MEQ in Premix 1 BAG IVPB SCH ×2 (10:07→17:37)
[2023-05-30] MEDS: Enoxaparin 40 MG (0.4 mL) SYRINGE SC SCH (10:08)
[2023-05-30] MEDS: Acetaminophen 325 MG TAB PO PRN ×2 (10:08→20:35)
[2023-05-30] MEDS: Venlafaxine HCl 37.5 MG TAB PO SCH ×2 (10:09→20:33)
[2023-05-30] MEDS: Clopidogrel Bisulfate 75 MG TAB PO SCH (10:09)
[2023-05-30] MEDS: Aspirin Chewable 81 MG TAB PO SCH (10:09)
[2023-05-30] MEDS: Metoprolol Tartrate 25 MG TAB PER TUBE SCH ×2 (10:09→20:33)
[2023-05-30] MEDS: Pantoprazole 40 MG VIAL IVP SCH (10:10)
[2023-05-30] MEDS ORDERED: Meropenem 1 GM in Sodium Chloride 0.9% 100 ML IVPB SCH ×2 (13:45→14:00)
[2023-05-30] MEDS: traZODone HCl 50 MG TAB PER TUBE PRN ×2 (15:02→20:33)
[2023-05-30] MEDS: Scopolamine 1 mg/72 hour Patch TOP SCH (16:02)
[2023-05-30] MEDS: Atorvastatin Calcium 40 MG TAB PO SCH (20:33)
[2023-05-31] MEDS: Methimazole 10 MG TAB PER TUBE SCH ×7 (00:42→20:28)
[2023-05-31] MEDS: Acetaminophen 325 MG TAB PO PRN ×2 (00:42→20:28)
[2023-05-31] MEDS: Hydrocortisone Sod Succ/PF 100 mg/2 ml Vial IVP SCH (00:43)
[2023-05-31] MEDS: Meropenem 1 GM in Sodium Chloride 0.9% 100 ML IVPB SCH ×3 (00:44→16:17)
[2023-05-31] MEDS: Ipratropium/Albuterol 3 ML NEB NEB SCH ×4 (01:32→19:24)
[2023-05-31] MEDS: Clopidogrel Bisulfate 75 MG TAB PO SCH (08:35)
[2023-05-31] MEDS: Aspirin Chewable 81 MG TAB PO SCH (08:35)
[2023-05-31] MEDS: Venlafaxine HCl 37.5 MG TAB PO SCH ×2 (08:35→20:28)
[2023-05-31] MEDS: Metoprolol Tartrate 25 MG TAB PER TUBE SCH ×2 (08:35→20:28)
[2023-05-31] MEDS: Enoxaparin 40 MG (0.4 mL) SYRINGE SC SCH (08:36)
[2023-05-31] MEDS: Pantoprazole 40 MG VIAL IVP SCH (08:36)
[2023-05-31 14:03] VITALS: BMI 28.9
[2023-05-31] MEDS: Atorvastatin Calcium 40 MG TAB PO SCH (20:28)
[2023-05-31] MEDS: traZODone HCl 50 MG TAB PER TUBE PRN (20:28)
[2023-05-31] MEDS: Ondansetron PF 4 MG/2 ML Vial IVP PRN (20:29)
[2023-06-01] MEDS: Hydrocortisone Sod Succ/PF 100 mg/2 ml Vial IVP SCH (01:24)
[2023-06-01] MEDS: Meropenem 1 GM in Sodium Chloride 0.9% 100 ML IVPB SCH ×3 (01:24→16:49)
[2023-06-01] MEDS: Methimazole 10 MG TAB PER TUBE SCH ×6 (01:24→20:13)
[2023-06-01] MEDS: Ipratropium/Albuterol 3 ML NEB NEB SCH ×5 (02:04→23:54)
[2023-06-01 04:22] LABS: Hematocrit 30.5 % (36.0-47.0); Hemoglobin 9.7 g/dL (12.0-16.0); Mean Corpuscular HGB CONC 31.8 g/dL (32.0-36.0); Mean Corpuscular Hemoglobin 27.5 pg (27.0-31.0); Mean Corpuscular Volume 86.4 fl (78.0-98.0); Mean Platelet Volume 10.4 fL (7.4-10.4); Platelet Count 439 10x3/uL (130-400); Red Blood Cell (RBC) Count 3.53 mill/uL (4.20-5.40); White Blood Cell (WBC) Count 14.7 10x3/uL (4.8-10.8)
[2023-06-01 04:55] LABS: Anion Gap 11 mmol/L (10-20); BUN (Urea Nitrogen) 10 mg/dL (9.8-20.1); Calc. Creatinine Clearance 107 mL/min (70-130); Carbon Dioxide 28 mmol/L (23-31); Chloride 107 mmol/L (98-107); Estimated GFR 97; Glucose 114 mg/dL (83-110); Potassium 3.1 mmol/L (3.5-5.1); Sodium 143 mmol/L (136-145)
[2023-06-01 05:09] LABS: Free T4 (Free Thyroxine) 1.39 ng/dL (0.70-1.48); Thyroid Stimulating Hormone Less than 0.0025 uIU/mL (0.35-4.94)
[2023-06-01] MEDS ORDERED: Potassium Bicarbonate/Cit Ac 20 MEQ TAB PER TUBE SCH (08:00)
[2023-06-01] MEDS: Enoxaparin 40 MG (0.4 mL) SYRINGE SC SCH (08:19)
[2023-06-01] MEDS: Clopidogrel Bisulfate 75 MG TAB PO SCH (08:20)
[2023-06-01] MEDS: Venlafaxine HCl 37.5 MG TAB PO SCH ×2 (08:20→20:10)
[2023-06-01] MEDS: Aspirin Chewable 81 MG TAB PO SCH (08:20)
[2023-06-01] MEDS: Metoprolol Tartrate 25 MG TAB PER TUBE SCH ×2 (08:20→20:09)
[2023-06-01] MEDS: Pantoprazole 40 MG VIAL IVP SCH (08:20)
[2023-06-01] MEDS: Atorvastatin Calcium 40 MG TAB PO SCH (20:10)
[2023-06-01] MEDS: traZODone HCl 50 MG TAB PER TUBE PRN (20:10)
[2023-06-02] MEDS: Meropenem 1 GM in Sodium Chloride 0.9% 100 ML IVPB SCH ×2 (00:24→08:48)
[2023-06-02] MEDS: Methimazole 10 MG TAB PER TUBE SCH ×4 (00:24→13:18)
[2023-06-02] MEDS: Ipratropium/Albuterol 3 ML NEB NEB SCH ×2 (07:35→13:14)
[2023-06-02 08:32] VITALS: TEMP 98.2
[2023-06-02] MEDS: Pantoprazole 40 MG VIAL IVP SCH (08:47)
[2023-06-02] MEDS: Enoxaparin 40 MG (0.4 mL) SYRINGE SC SCH (08:47)
[2023-06-02] MEDS: Aspirin Chewable 81 MG TAB PO SCH (08:48)
[2023-06-02] MEDS: Clopidogrel Bisulfate 75 MG TAB PO SCH (08:48)
[2023-06-02] MEDS: Venlafaxine HCl 37.5 MG TAB PO SCH (08:49)
[2023-06-02] MEDS: Metoprolol Tartrate 25 MG TAB PER TUBE SCH (08:49)
[2023-06-02] MEDS: Scopolamine 1 mg/72 hour Patch TOP SCH (11:25)
[2023-06-02 11:57] VITALS: BP 129/66
[2023-06-03] MEDS ORDERED: FLU VACC QS2023(65UP)/MF59C/PF 60 MCG/0.5 ML SYRINGE IM ONE (09:00)
== END 2023-06-02 14:18 | disposition home or self-care (01) | DRG 870 ==
LOC: ERS 13:50 → ERHOLD 18:58 → IMCU/EMU 05-20 12:58 → CCU 05-20 17:01 → 2SE 05-25 18:15 → CCU 05-28 01:36 → 2SE 05-29 13:07
PROVIDERS: ADMIT Hospitalist; ATTEND Hospitalist
PROC: 5A1955Z Respiratory Ventilation, Greater than 96 Consecutive Hours (ICD-10-PCS; principal; 2023-05-20)
PROC: 0BH18EZ Insertion of Endotracheal Airway into Trachea, Via Natural or Artificial Opening Endoscopic (ICD-10-PCS; 2023-05-20)
PROC: 4A133R1 Monitoring of Arterial Saturation, Peripheral, Percutaneous Approach (ICD-10-PCS; 2023-05-20)
PROC: 3E03329 Introduction of Other Anti-infective into Peripheral Vein, Percutaneous Approach (ICD-10-PCS; 2023-05-20)
DX: A41.81 Sepsis due to Enterococcus (principal); E05.91 Thyrotoxicosis, unspecified with thyrotoxic crisis or storm; G93.41 Metabolic encephalopathy; J96.01 Acute respiratory failure with hypoxia; E87.1 Hypo-osmolality and hyponatremia; E11.9 Type 2 diabetes mellitus without complications; E03.9 Hypothyroidism, unspecified; I73.9 Peripheral vascular disease, unspecified; I48.91 Unspecified atrial fibrillation; D64.9 Anemia, unspecified; R13.12 Dysphagia, oropharyngeal phase; M54.50 Low back pain, unspecified; G89.29 Other chronic pain; E04.2 Nontoxic multinodular goiter; Z88.5 Allergy status to narcotic agent; Z88.1 Allergy status to other antibiotic agents; Z79.82 Long term (current) use of aspirin; Z79.899 Other long term (current) drug therapy; Z98.890 Other specified postprocedural states; Z87.891 Personal history of nicotine dependence; Z83.3 Family history of diabetes mellitus; Z82.49 Family history of ischemic heart disease and other diseases of the circulatory system
CPT/HCPCS: 36415; 36416; 36600; 51701; 70496; 70498; 71045; 71275; 74174; 76536; 80048; 80053; 81001; 82805; 83036; 83605; 83690; 83735; 83880; 84100; 84439; 84443; 84445; 84481; 84484; 85025; 85027; 86800; 87040; 87077; 87081; 87086; 87186; 93005; 93010; 93306; 94002; 94003; 94640; 94760; 96361; 96374; 96375; C9113; J1200; J1650; J1720; J1815; J1940; J2060; J2185; J2405; J2543; J2704; J2765; J3010; J3480; J3490; J7050; J7120; J7620; Q0162; Q9967